=== PATIENT | male | born 1940 | race African-American/Black ===

== ENCOUNTER 2019-11-21 18:15 | IRF | payer MEDICARE, MEDICAID, SELFPAY ==
--- NOTE | ~2019-11-21 | CT_ITS ---
EXAMINATION: CT brain wo con DATE: 12/11/2019 00:28 INDICATION: Left hemiparesis. TECHNIQUE: Computed tomography (CT) of the head was performed without intravenous contrast. The mA wa s adjusted according to patient size. Iterative reconstruction technique was employed. The dose-lengt h product was 605.33 mGy-cm. COMPARISON: None FINDINGS: There are areas of low attenuation involving the white matter of the right temporal parieta l occipital region and left occipital lobe. There is no intracranial hemorrhage or abnormal mass lesi on. The ventricles are normal in size. There is mild mucosal thickening in the paranasal sinuses. The mastoid air cells are normal. There are likely changes of right ocular lens replacement surgery. IMPRESSION: 1. Areas of low attenuation involving the white matter of the right temporal parietal occipital lobe and left occipital lobe. The differential diagnosis includes posterior reversible encephalopathy synd emiliano (PRES), vasogenic edema from metastatic disease, and cytotoxic edema from infarcts. Brain MRI wi thout and with contrast is recommended. Reviewed, dictated and finalized at location A. IMPRESSION: 1. Areas of low attenuation involving the white matter of the right temporal pa rietal occipital lobe and left occipital lobe. The differential diagnosis inclu osiel posterior reversible encephalopathy syndrome (PRES), vasogenic edema from m etastatic disease, and cytotoxic edema from infarcts. Brain MRI without and wit h contrast is recommended.
--- NOTE | ~2019-11-21 | MR_ITS ---
EXAMINATION: MR brain/brain stem wo/w con DATE: 12/11/2019 12:49 INDICATION: Left hemiparesis. TECHNIQUE: Magnetic resonance imaging (MRI) of the brain and brainstem was performed without and with 14 mL MultiHance intravenous contrast. Sequences included sagittal and axial T1-weighted FSE, axial diffusion-weighted FS EPI, axial T2*-weighted GRE, axial T2-weighted FLAIR Propeller, and axial T2-we ighted Propeller. Postcontrast sequences included axial and coronal T1-weighted FSE. Apparent diffusi on coefficient (ADC) maps were created. COMPARISON: Head CT 12/11/2019 FINDINGS: There is a chronic infarct in the right parietal, temporal, and occipital lobes involving w mario matter and coffey matter. There is increased precontrast T1 weighted signal intensity in some of t he coffey matter in this distribution, consistent with cortical necrosis. There is an old infarct in le ft occipital lobe. There are scattered areas of nonspecific increased T2-weighted signal intensity in the cerebral white matter. There is no intracranial hemorrhage or abnormal mass lesion. The ventricl es are normal in size. There are likely changes of right ocular lens replacement surgery. There is mi ld mucosal thickening in the ethmoid sinuses. There is dependent fluid in the maxillary sinuses. The mastoid air cells are normal. IMPRESSION: 1. Chronic infarct involving the right parietal, temporal, and occipital lobes. Chronic infarct in th e left occipital lobe. 2. Mild nonspecific cerebral white matter disease, which likely represents chronic small vessel ische brii disease. Reviewed, dictated and finalized at location A. IMPRESSION: 1. Chronic infarct involving the right parietal, temporal, and occipital lobes. Chronic infarct in the left occipital lobe. 2. Mild nonspecific cerebral white matter disease, which likely represents level vial inspector jerome small vessel ischemic disease.
[2019-11-21 18:55] VITALS: BP 160/90; PULSE 90; RESP 20; TEMP 36.9; O2SAT 100
[2019-11-21 18:57] VITALS: BMI 25.5
--- NOTE | 2019-11-21 18:59 | PC.NURSE ---
This patient, Treva Solano, was admitted to [facility] Room 225-01. Patient/family oriented to hospital policies and general routines including ID bracelet, bed and alarms, visiting hours, pain management, procedures, bathroom and other care routines, personal items, smoking policy, room service/diet, and visiting hours. Valuables list has been completed. Information on how to activate the Rapid Response Team has been discussed. Patient/Family are encouraged to report perceived risks to care and to ask questions if they do not understand what they are told or what they should do.
[2019-11-21] MEDS: levETIRAcetam 500 MG TABLET 1000 MG PO (20:14)
[2019-11-21] MEDS: BETAMETHASONE/CLOTRIMAZOLE CR 15 GM TUBE 1 APPLIC TOPICAL (20:14)
[2019-11-21 22:00] VITALS: BP 146/78; PULSE 99; RESP 18; TEMP 37.1; O2SAT 98
[2019-11-22 04:51] LABS: Basophils Percent Auto 0.4 % (0.2-1.2); Eosinophils Absolute Auto 0.1 K/mm3 (0-0.3); Eosinophils Percent Auto 2.5 % (0-4.4); Hematocrit 38.4 % (42.0-52.0); Hemoglobin 12.8 g/dL (14.0-18.0); Immature Granulocyte Absolute 0.02 K/mm3 (0.00-0.031); Immature Granulocyte Percent A 0.4 % (0-0.5); Lymphocytes Absolute Auto 1.17 K/mm3 (0.9-3.2); Lymphocytes Percent Auto 20.5 % (18.3-44.2); Mean Corpuscular HGB Conc 33.3 g/dl (32-36); Mean Corpuscular Volume 89.9 fl (80-100); Mean Platelet Volume 10.3 fl (7.4-10.4); Monocytes Absolute Auto 0.7 K/mm3 (0.1-0.6); Monocytes Percent Auto 12.1 % (2.6-8.5); Neutrophils Absolute Auto 3.7 K/mm3 (1.3-6.7); Neutrophils Percent Auto 64.1 % (45.5-73.1); Platelet Count Result 162 k/mm3 (150-375); Red Blood Count 4.27 M/mm3 (4.6-6.20); Red Cell Distribution Width 14.2 % (11.5-14.5); White Blood Count 5.7 K/mm3 (4.5-10.0)
[2019-11-22 05:04] LABS: Blood Urea Nitrogen 13 mg/dL (9-20); Calcium 8.6 mg/dL (8.4-10.2); Carbon Dioxide 31 mmol/L (22-30); Chloride 102 mmol/L (98-107); Cholesterol 119 mg/dL (0-200); Estimated CRCL calculation 68 ml/min; Estimated Glomerular Filt Rate > 60; Glucose 89 mg/dL (75-110); HDL Direct 39 mg/dL; Potassium 3.3 mmol/L (3.4-5.0); Sodium 138 mmol/L (137-145); Triglycerides 37 mg/dL (<150)
[2019-11-22 05:15] LABS: LDL Cholesterol Direct 60 mg/dL
[2019-11-22 06:00] VITALS: BP 179/91; PULSE 67; RESP 18; TEMP 36.8; O2SAT 94
[2019-11-22] MEDS: AMLODIPINE BESYLATE 5 MG TABLET 10 MG PO (10:40)
[2019-11-22] MEDS: levETIRAcetam 500 MG TABLET 1000 MG PO ×2 (10:41→20:03)
[2019-11-22] MEDS: ATORVASTATIN 40 MG TABLET PO (10:41)
[2019-11-22] MEDS: FAMOTIDINE 20 MG TABLET PO (10:41)
[2019-11-22] MEDS: ASPIRIN 325 MG TABLET PO (10:41)
[2019-11-22] MEDS: LORATADINE 10 MG TABLET PO (10:41)
[2019-11-22 10:42] VITALS: PULSE 67
[2019-11-22] MEDS: METOPROLOL TARTRATE 25 MG TABLET PO (10:42)
[2019-11-22] MEDS: PANTOPRAZOLE 40 MG TABLET PO (10:42)
[2019-11-22] MEDS: BETAMETHASONE/CLOTRIMAZOLE CR 15 GM TUBE 1 APPLIC TOPICAL ×2 (10:42→20:03)
--- NOTE | 2019-11-22 13:13 | PCSTNOTE ---
Please refer to the Bedside Swallow Evaluation in the EMR.
--- NOTE | 2019-11-22 13:34 | WPDREHABHP ---
H&P: HPI History of Present Illness Chief complaint: CVA Narrative: Treva Solano is a 79 year old male HISTORY OF PRESENT ILLNESS: The patient's primary rehab impairment category is 0 1/stroke The etiologic diagnosis is right parieto-occipital CVA I saw this patient [id number] on November 22, 2019 at 10:00 a.m. The patient is a 79-year-old right-handed Afro [place] male with a past medical history of hypertension and hyperlipidemia who presented to [facility] on November 23, 2019 after his granddaughter found him leaning on a chair to get up. His daughter and granddaughter both tried to reach him via phone and he did not answer to the granddaughter who went to check on him and found him. The speech was noted to be slurred and he was weak on the left side. The head CT showed right parieto-occipital stroke likely subacute. The case was discussed with the stroke team in [facility] [employer] and they felt the patient should be transferred to [facility] as a stroke. He was not a candidate for any sort of thrombolytic intervention as he presented outside the window. Neurology was consulted and started him on aspirin and high intensity statin. MRI of the brain showed multiple right posterior cerebral artery territory infarct as well as acute sinusitis (he was placed on doxycycline close) EEG performed on November 16, 2019 noted a focal seizure that lasted approximately 30 seconds and did not generalize. The patient was placed on Keppra. Neurology wondered about the possibility of encephalitis and ordered lumbar puncture. Lumbar puncture was completed on November 17, 2019 and no infection was found. He passed his swallow study and is on melissa diet with thin liquid physical medicine and rehab was consulted and felt the patient would require comprehensive inpatient rehabilitation as the physical examination revealed left-sided weakness functional mobility deficits self-care deficits and dysphagia the patient is discharged to rehab on Lovenox for DVT prophylaxis at least this is what they told us at the time of screening however the patient did not come on the Lovenox at this point. The patient has not traveled outside the [place] or hide contact with someone who is ill that his travel outside of the [place] in the past 20 day days. The patient has not traveled to the area of the [place] that is experiencing no transmission of the Coronavirus and has not had close personal contact with anyone that has. The patient does not have a fever. The patient is not experiencing any lower respiratory illness symptoms. The patient was tested for COVID-19 and November 23, 2019 and the results were negative Therapy was initiated at the acute care facility and the patient transferred to us from [facility] on November 21, 2019 on FALLS OR SURGERIES: The patient has had no major surgeries in the 100 days prior to admission. They had falls in the past year. They had no falls with injury in the past year. PAST MEDICAL HISTORY: hypertension, hyperlipidemia PAST SURGICAL HISTORY: hemorrhoid surgery SOCIAL HISTORY: single. Lives alone. 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 Patient lives independently in a 1 level home with 3 steps to enter. He was independent driving prior with no assistive device. His daughter and grand daughter do the cooking cleaning and grocery shopping. 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 He has had 1 fall in the past 6 months just prior to admission and no major surgery. Never smoked only 2 alcoholic drinks per week no drugs FAMILY HISTORY: mother with heart disease and diabetes PRIOR LEVEL OF FUNCTION: Eating was INDEPENDENT Oral Care was INDEPENDENT Toileting Hygiene was INDEPENDENT Shower/Bathing was INDEPENDENT Upper Body Dressing was INDEPENDENT Lower Body Dressing was INDEPENDENT Donning/Lagrange Footwear was INDEPENDENT Rolling Left and R
[2019-11-22 14:00] VITALS: BP 167/88; PULSE 59; RESP 17; TEMP 36.8; O2SAT 100
[2019-11-22 14:04] VITALS: BMI 25.5
[2019-11-22 22:00] VITALS: BP 148/77; PULSE 73; RESP 16; TEMP 36.6; O2SAT 96
[2019-11-23] VITALS (7 sets, daily range): BP systolic 111–179; BP diastolic 68–94; PULSE 54–79; RESP 12–19; TEMP 36.6–36.7; O2SAT 97–100
[2019-11-23] MEDS: AMLODIPINE BESYLATE 5 MG TABLET 10 MG PO (09:09)
[2019-11-23] MEDS: ASPIRIN 325 MG TABLET PO (09:09)
[2019-11-23] MEDS: FAMOTIDINE 20 MG TABLET PO (09:09)
[2019-11-23] MEDS: ATORVASTATIN 40 MG TABLET PO (09:09)
[2019-11-23] MEDS: levETIRAcetam 500 MG TABLET 1000 MG PO ×2 (09:09→20:09)
[2019-11-23] MEDS: LORATADINE 10 MG TABLET PO (09:09)
[2019-11-23] MEDS: METOPROLOL TARTRATE 25 MG TABLET PO (09:09)
[2019-11-23] MEDS: BETAMETHASONE/CLOTRIMAZOLE CR 15 GM TUBE 1 APPLIC TOPICAL (09:09)
[2019-11-23] MEDS: PANTOPRAZOLE 40 MG TABLET PO (09:09)
[2019-11-23 11:23] LABS: Glucose Point of Care 127 (65-105)
--- NOTE | 2019-11-23 11:29 | ECG_ITS ---
Measurements Intervals Driscoll Rate: 52 P: 58 MS: 157 QRS: -17 QRSD: 88 T: 58 QT: 478 QTc: 446 Interpretive Statements SINUS BRADYCARDIA LEFT VENTRICULAR HYPERTROPHY AND ST-T CHANGE MINIMAL Q WAVES- HIGH LATERAL LEADS NONSPECIFIC ST ELEVATION IN ANTERIOR LEADS BORDERLINE ST-T WAVE ABNORMALITY- LATERAL LEADS BORDERLINE ECG Electronically Signed On 11-23-2019 13:01:50 CDT by Jhony Morales D.O.
--- NOTE | 2019-11-23 11:37 | PC.NURSE ---
Called to room by OT staff. Arrived to find patient sitting in wheelchair with seizure activity and jerking movements noted to left side of body. Patient to bed with max assist of 4. Rapid response team called. Dr Plascencia on floor and here to see patient. VSS at 110/58- 58- resp rate 12. 02 sat 94%. 02 applied at 2L/NC per orders. Patient initially unresponsive but waking up now when name called. New orders noted.
[2019-11-23] MEDS: levETIRAcetam 1000MG/NACL100ML 1,000 MG/100 ML BAG 400 MG IVPB (11:42)
--- NOTE | 2019-11-23 11:54 | PCOTNOTE ---
At beginning of morning OT session, patient was seated in wheelchair at the sink, preparing to perform oral care. Patient was oriented to self and place and was discussing the therapy plan for this session. Patient then stated he felt nauseous and leaned forward over the sink and was minimally responsive. Nursing was contacted and took the patient's vitals, which nursing stated checked normal. Patient was then transferred to bed and a rapid response was called. Physician was also notified and assessed patient. At this time, unable to complete therapy session.
[2019-11-23] MEDS: POTASSIUM CHLORIDE 20 MEQ PACKET (FOR LIQUID) PO (12:00)
--- NOTE | 2019-11-23 15:28 | PCOTNOTE ---
Attempted rescheduled OT session this afternoon, however patient unable to participate due to decreased patient tolerance.
--- NOTE | 2019-11-23 16:25 | RPD ---
INDIVIDUALIZED PLAN OF CARE FOR Treva Solano Brief Synthesis of Pre-Admission Screen, Post-Admission Evaluation and Therapy Evaluations: The patient presents to rehab with right parieto-occipital CVA. Comorbidities include hypertension, hyperlipidemia, hyperglycemia, elevated AST, hypercalcemia, malnutrition, debility, dysarthria, dysphagia, left-sided weakness, acute sinusitis, and focal seizures. The patient needs physician monitoring and treatment of new seizure disorder, electrolyte imbalances, monitoring for adverse reactions to new medications, and monitoring for infection. The patient requires nursing services for frequent neuro checks, anticoagulation therapy, medication management and education, pressure relief and skin care management, monitoring of labs, bowel and bladder training, and fall/seizure/safety precautions. Deficits include:ADLs, Balance, Endurance, Family Training/Education, Mobility, Pain Management, ROM, Safety, Speech, Strength, Swallowing, and Transfers Tricot Knitter/Case Management for: Discharge Planning and Patient/Family Counseling Physical Therapy: 5 days per week for 60 minutes. Treatments may include: Therapeutic Exercise, Gait Training, Neuromuscular Re-education, Transfer Training, Community Reintegration, Bed Mobility, Patient/Family Education, Wheelchair Mobility Group Therapy/Concurrent Therapy Rationales: -Improve attention span during functional activities in a distracted environment. -Enhance problem solving and/or adequate judgment skills during functional activities in a distracted environment. -Promote increased safety awareness in a distracted environment to reduce fall risk with functional tasks, transfers, and ambulation to allow a more safe, self-sufficient return to the home environment. -Improve dynamic balance skills to promote safety and independence with functional activities in a distracted environment for maximum gain. Occupational Therapy: 5 days per week for 60 minutes. Treatments may include: Therapeutic Exercise, Therapeutic Activity, Cognitive Training, Self-Care Transfer Training, Community Reintegration, Home Management, Patient/Family Education, Wheelchair Mobility Training, Energy Conservation Training Group Therapy/Concurrent Therapy Rationales: -Allow therapist to observe and teach generalization and carry-over of skills learned in individual therapy. -Enhance problem solving and sequencing skills during therapeutic activities in a distracted environment. -Promote increased safety awareness in a realistic setting to reduce fall risk with functional tasks due to visual and verbal distractions. -Increase functional level with ADLs, ADL transfers and use of adaptive equipment through therapeutic activities with others while promoting safety to allow a more safe, self-sufficient return home. Speech Therapy: 5 days per week for 60 minutes. Treatments may include: Dysphasia Therapy, Speech/Language/Communication Therapy, Cognitive Training, Patient/Family Education Group Therapy/Concurrent Therapy - Rationale: -Allow therapist to observe and teach generalization and carry-over of skills learned in individual therapy. -Improve comprehension skills with complex or abstract ideas through discussion in a realistic setting. -Enhance problem solving skills with complex issues during activities in a distracted environment. -Promote increased memory skills and concentration in a distracted environment for a safe transition home. -Improve attention and focus with language/communication skills in a realistic and supportive therapeutic setting. -Allow for practice of expression of basic needs and ideas through functional activities with others. Medical Prognosis: Good Anticipated Length of Stay: 15 days Rehab Goals: Eating Goal: 05-Setup or Clean Up Assistance Oral Hygiene Goal: 05-Setup or Clean Up Assistance Toileting Hygiene Goal: 04-Supervision or Touching Assistance Shower/Bathe Self Goal: 04-Super
[2019-11-24 06:00] VITALS: BP 166/84; PULSE 79; RESP 16; TEMP 36.7; O2SAT 100
[2019-11-24 08:05] VITALS: O2SAT 97
[2019-11-24] MEDS: ASPIRIN 325 MG TABLET PO (08:53)
[2019-11-24] MEDS: AMLODIPINE BESYLATE 5 MG TABLET 10 MG PO (08:53)
[2019-11-24] MEDS: ATORVASTATIN 40 MG TABLET PO (08:53)
[2019-11-24 08:54] VITALS: PULSE 79
[2019-11-24] MEDS: POTASSIUM CHLORIDE 20 MEQ PACKET (FOR LIQUID) PO (08:54)
[2019-11-24] MEDS: PANTOPRAZOLE 40 MG TABLET PO (08:54)
[2019-11-24] MEDS: levETIRAcetam 500 MG TABLET 1000 MG PO (08:54)
[2019-11-24] MEDS: FAMOTIDINE 20 MG TABLET PO (08:54)
[2019-11-24] MEDS: METOPROLOL TARTRATE 25 MG TABLET PO (08:54)
[2019-11-24] MEDS: LORATADINE 10 MG TABLET PO (08:54)
--- NOTE | 2019-11-24 12:34 | WPDNEURORHBP ---
Subjective Date/time seen: 11/24/19 12:34 Interval history: this 79-year-old Afro-Sammarinese gentleman is here after having had a right parieto-occipital stroke which has left him with left-sided hemiparesis left-sided ryan visual field defect and also significant left-sided hemiparesis he denies any headache nausea vomiting chest pain shortness of breath he had a brief partial seizure yesterday with loss of consciousness and was given an extra dose of Keppra 1 gram and since then he has not had any further seizures Review of Systems Review of Systems: All systems reviewed & are unremarkable except as noted in HPI and below Functional Status Ambulation Ability Ability to Ambulate 10 Feet: Maximum Assistance X 1 Ambulation Assistive Devices: Parallel Bars Transfers Ability Ability to Transfer In/Out of Chair: Maximum Assistance X 1 Exam Const: General: comfortable and no acute distress HENMT: General nose exam: Normal nares present Mouth: Yes moist mucous membranes Eyes: General: appearance normal, both eyes and all related structures Neck: Neck: supple and no JVD Resp: Effort & Inspection: normal respiratory effort Auscultation: clear to auscultation bilaterally Cardio: Rate: regular rate Rhythm: regular rhythm GI: GI Palp: Yes Soft to palpation Auscultation: normal bowel sounds Skin: General skin exam: normal color and no rashes or lesions noted Neuro: Other: patient is awake and alert well oriented of course he does not recall the sequence of events yesterday when he had the few minutes long partial seizures with eyes rolling back and the semi consciousness episode his left-sided hemiparesis stable left-sided neglect is stable and is communicating fairly well Extrem: General: normal to inspection Psych: Mental Status: mental status grossly normal Objective Data Vital Signs Vital Signs: Vital Signs - 24 hr 11/23/19 14:00 11/23/19 14:50 11/23/19 22:00 Temperature 36.7 C 36.6 C Pulse Rate 67 71 79 Respiratory Rate 19 16 Blood Pressure 134/81 134/81 145/77 H Pulse Oximetry 100 100 100 11/24/19 06:00 11/24/19 08:05 11/24/19 08:54 Temperature 36.7 C Pulse Rate 79 79 Respiratory Rate 16 Blood Pressure 166/84 H Pulse Oximetry 100 97 Intake/Output Intake/Output: Intake & Output 11/21/19 11/22/19 11/23/1929/20 23:59 23:59 23:59 23:59 Intake Total 960 940 360 Balance 960 940 360 Meds/Results Medications: Active Medications Generic Name Dose Route Start Last Admin Trade Name Freq PRN Reason Stop Dose Admin Amlodipine Besylate 10 mg 11/22/19 09:00 11/24/19 08:53 Norvasc PO 10 mg DAILY ILSA Administration Aspirin 325 mg 11/22/19 09:00 11/24/19 08:53 Aspirin PO 325 mg DAILY ILSA Administration Atorvastatin Calcium 40 mg 11/22/19 09:00 11/24/19 08:53 Lipitor PO 40 mg DAILY ILSA Administration Clotrimazole 1 applic 11/23/19 12:03 Lotrisone Cream TOPICAL Q12HR PRN Rash Famotidine 20 mg 11/22/19 09:00 11/24/19 08:54 Pepcid PO 20 mg DAILY ILSA Administration Levetiracetam 1,000 mg 11/21/19 21:00 11/24/19 08:54 Keppra Tablet PO 1,000 mg Q12HR ILSA Administration Loratadine 10 mg 11/22/19 09:00 11/24/19 08:54 Claritin PO 10 mg DAILY ILSA Administration Metoprolol Tartrate 25 mg 11/22/19 09:00 11/24/19 08:54 Lopressor PO 25 mg DAILY ILSA Administration Pantoprazole Sodium 40 mg 11/22/19 09:00 11/24/19 08:54 Protonix PO 40 mg QAM ILSA Administration Potassium Chloride 20 meq 11/23/19 09:00 11/24/19 08:54 Kcl Powder (For Liquid) PO 20 meq DAILY ILSA Administration Progress Note: A&P Assessment and Plan (1) Hyperlipidemia: Code(s): E78.5 - Hyperlipidemia, unspecified Status: Acute (2) Focal seizure: Code(s): R56.9 - Unspecified convulsions Status: Acute (3) Hypertension: Code(s): I10 - Essential (primary) hypertension
[2019-11-24 14:00] VITALS: BP 124/68; PULSE 65; RESP 17; TEMP 37.1; O2SAT 100
[2019-11-24] MEDS: levETIRAcetam 500 MG TABLET 1500 MG PO (20:16)
[2019-11-24 21:41] VITALS: BP 136/86; PULSE 75; RESP 20; TEMP 37.1; O2SAT 100
[2019-11-25 05:43] VITALS: BP 154/86; PULSE 69; RESP 18; TEMP 36.7; O2SAT 100
[2019-11-25] MEDS: ASPIRIN 325 MG TABLET PO (10:15)
[2019-11-25] MEDS: ATORVASTATIN 40 MG TABLET PO (10:15)
[2019-11-25] MEDS: AMLODIPINE BESYLATE 5 MG TABLET 10 MG PO (10:15)
[2019-11-25 10:16] VITALS: PULSE 74
[2019-11-25] MEDS: FAMOTIDINE 20 MG TABLET PO (10:16)
[2019-11-25] MEDS: METOPROLOL TARTRATE 25 MG TABLET PO (10:16)
[2019-11-25] MEDS: LORATADINE 10 MG TABLET PO (10:16)
[2019-11-25] MEDS: levETIRAcetam 500 MG TABLET 1500 MG PO ×2 (10:16→20:03)
[2019-11-25] MEDS: PANTOPRAZOLE 40 MG TABLET PO (10:17)
[2019-11-25] MEDS: POTASSIUM CHLORIDE 20 MEQ PACKET (FOR LIQUID) PO (10:17)
[2019-11-25 14:00] VITALS: BP 113/76; PULSE 61; RESP 17; TEMP 36.5; O2SAT 97
--- NOTE | 2019-11-25 15:51 | WPDNEURORHBP ---
Subjective Date/time seen: 11/25/19 15:51 Interval history: this very pleasant 79-year-old gentleman is here post stroke which has affected her left side of the body and also has had seizures for which Keppra has been increased so in the previous almost 48 hours he has not had any more seizures in denies any headache nausea vomiting chest pain shortness of breath fever chills sore throat Review of Systems Review of Systems: All systems reviewed & are unremarkable except as noted in HPI and below Functional Status Ambulation Ability Ability to Ambulate 10 Feet: Maximum Assistance X 1 Ambulation Assistive Devices: Hand Hold and Railings Transfers Ability Ability to Transfer In/Out of Chair: Moderate Assistance X 1 Exam Const: General: comfortable and no acute distress HENMT: General nose exam: Normal nares present Mouth: Yes moist mucous membranes Eyes: General: appearance normal, both eyes and all related structures Neck: Neck: supple and no JVD Resp: Effort & Inspection: normal respiratory effort Auscultation: clear to auscultation bilaterally Cardio: Rate: regular rate Rhythm: regular rhythm GI: GI Palp: Yes Soft to palpation Auscultation: normal bowel sounds Skin: General skin exam: normal color and no rashes or lesions noted Neuro: Other: patient is awake and alert will oriented in time place and person is speech and language functions are normal she is able to follow commands quite well left-sided hemiparesis is improved Extrem: General: normal to inspection Psych: Mental Status: mental status grossly normal Objective Data Vital Signs Vital Signs: Vital Signs - 24 hr 11/24/19 21:41 11/25/19 05:43 11/25/19 10:16 Temperature 37.1 C 36.7 C Pulse Rate 75 69 74 Respiratory Rate 20 18 Blood Pressure 136/86 154/86 H Pulse Oximetry 100 100 Intake/Output Intake/Output: Intake & Output 11/22/19 11/23/19 11/24/19 11/25/19 23:59 23:59 23:59 23:59 Intake Total 960 940 840 600 Balance 960 940 840 600 Meds/Results Medications: Active Medications Generic Name Dose Route Start Last Admin Trade Name Freq PRN Reason Stop Dose Admin Amlodipine Besylate 10 mg 11/22/19 09:00 11/25/19 10:15 Norvasc PO 10 mg DAILY ILSA Administration Aspirin 325 mg 11/22/19 09:00 11/25/19 10:15 Aspirin PO 325 mg DAILY ILSA Administration Atorvastatin Calcium 40 mg 11/22/19 09:00 11/25/19 10:15 Lipitor PO 40 mg DAILY ILSA Administration Clotrimazole 1 applic 11/23/19 12:03 Lotrisone Cream TOPICAL Q12HR PRN Rash Famotidine 20 mg 11/22/19 09:00 11/25/19 10:16 Pepcid PO 20 mg DAILY ILSA Administration Levetiracetam 1,500 mg 11/24/19 12:34 11/25/19 10:16 Keppra Tablet PO 1,500 mg Q12HR ILSA Administration Loratadine 10 mg 11/22/19 09:00 11/25/19 10:16 Claritin PO 10 mg DAILY ILSA Administration Metoprolol Tartrate 25 mg 11/22/19 09:00 11/25/19 10:16 Lopressor PO 25 mg DAILY ILSA Administration Pantoprazole Sodium 40 mg 11/22/19 09:00 11/25/19 10:17 Protonix PO 40 mg QAM ILSA Administration Potassium Chloride 20 meq 11/23/19 09:00 11/25/19 10:17 Kcl Powder (For Liquid) PO 20 meq DAILY ILSA Administration Progress Note: A&P Assessment and Plan (1) Hyperlipidemia: Code(s): E78.5 - Hyperlipidemia, unspecified Status: Acute (2) Focal seizure: Code(s): R56.9 - Unspecified convulsions Status: Acute (3) Hypertension: Code(s): I10 - Essential (primary) hypertension Status: Acute (4) Left hemiparesis: Code(s): G81.94 - Hemiplegia, unspecified affecting left nondominant side Status: Acute (5) Stroke: Code(s): I63.9 - Cerebral infarction, unspecified Status: Acute Additional Plan we will continue present medical management physical therapy of compression therapy and gait training
[2019-11-25] MEDS: ENOXAPARIN 30 MG/0.3 ML SYRINGE SUB-Q (18:06)
[2019-11-25 20:00] VITALS: BP 138/83; PULSE 69; RESP 16; TEMP 36.5; O2SAT 98
[2019-11-26 04:48] LABS: Alanine Aminotransferase 23 U/L (4-50); Albumin Level 3.7 g/dL (3.5-5.1); Alkaline Phosphatase 77 U/L (38-126); Aspartate Amino Transferase 35 U/L (17-59); Bilirubin,Total 0.5 mg/dL (0.2-1.3); Blood Urea Nitrogen 18 mg/dL (9-20); Calcium 9.1 mg/dL (8.4-10.2); Carbon Dioxide 30 mmol/L (22-30); Chloride 103 mmol/L (98-107); Estimated CRCL calculation 54 ml/min; Estimated Glomerular Filt Rate > 60; Glucose 93 mg/dL (75-110); Potassium 4.1 mmol/L (3.4-5.0); Sodium 138 mmol/L (137-145)
[2019-11-26 06:00] VITALS: BP 115/75; PULSE 92; RESP 20; TEMP 36.8; O2SAT 100
[2019-11-26] MEDS: ATORVASTATIN 40 MG TABLET PO (10:22)
[2019-11-26] MEDS: ASPIRIN 325 MG TABLET PO (10:22)
[2019-11-26] MEDS: AMLODIPINE BESYLATE 5 MG TABLET 10 MG PO (10:22)
[2019-11-26] MEDS: FAMOTIDINE 20 MG TABLET PO (10:23)
[2019-11-26] MEDS: levETIRAcetam 500 MG TABLET 1500 MG PO ×2 (10:23→20:17)
[2019-11-26] MEDS: ENOXAPARIN 30 MG/0.3 ML SYRINGE SUB-Q (10:23)
[2019-11-26 10:24] VITALS: PULSE 72
[2019-11-26] MEDS: POTASSIUM CHLORIDE 20 MEQ PACKET (FOR LIQUID) PO (10:24)
[2019-11-26] MEDS: METOPROLOL TARTRATE 25 MG TABLET PO (10:24)
[2019-11-26] MEDS: LORATADINE 10 MG TABLET PO (10:24)
[2019-11-26] MEDS: PANTOPRAZOLE 40 MG TABLET PO (10:24)
[2019-11-26 14:00] VITALS: BP 144/76; PULSE 69; RESP 20; TEMP 36.9; O2SAT 100
--- NOTE | 2019-11-26 18:27 | WPDNEURORHBP ---
Subjective Date/time seen: 11/26/19 18:27 Interval history: this pleasant 79-year-old gentleman is here after having had stroke with dense left-sided hemiparesis he also had seizures however has not had any seizure in past more than 2 days and tolerating the dose of Keppra denies any headache nausea vomiting chest pain shortness of breath fever chills or sore throat Review of Systems Review of Systems: All systems reviewed & are unremarkable except as noted in HPI and below Functional Status Ambulation Ability Ability to Ambulate 10 Feet: Moderate Assistance X 2 Ambulation Assistive Devices: Walker, Wheeled Transfers Ability Ability to Transfer In/Out of Chair: Moderate Assistance X 1 Exam Const: General: comfortable and no acute distress HENMT: General nose exam: Normal nares present Mouth: Yes moist mucous membranes Eyes: General: appearance normal, both eyes and all related structures Neck: Neck: supple and no JVD Resp: Effort & Inspection: normal respiratory effort Auscultation: clear to auscultation bilaterally Cardio: Rate: regular rate Rhythm: regular rhythm GI: GI Palp: Yes Soft to palpation Auscultation: normal bowel sounds Skin: General skin exam: normal color and no rashes or lesions noted Neuro: Other: patient is awake and alert well oriented follows all commands fairly well slowly improving left-sided weakness Extrem: General: normal to inspection Psych: Mental Status: mental status grossly normal Objective Data Vital Signs Vital Signs: Vital Signs - 24 hr 11/25/19 20:00 11/26/19 06:00 11/26/19 10:24 Temperature 36.5 C 36.8 C Pulse Rate 69 92 72 Respiratory Rate 16 20 Blood Pressure 138/83 115/75 Pulse Oximetry 98 100 11/26/19 14:00 Temperature 36.9 C Pulse Rate 69 Respiratory Rate 20 Blood Pressure 144/76 H Pulse Oximetry 100 Intake/Output Intake/Output: Intake & Output 11/23/19 11/24/19 11/25/19 11/26/19 23:59 23:59 23:59 23:59 Intake Total 928 632 5508 960 Balance 226 135 2393 960 Meds/Results Medications: Active Medications Generic Name Dose Route Start Last Admin Trade Name Freq PRN Reason Stop Dose Admin Amlodipine Besylate 10 mg 11/22/19 09:00 11/26/19 10:22 Norvasc PO 10 mg DAILY ILSA Administration Aspirin 325 mg 11/22/19 09:00 11/26/19 10:22 Aspirin PO 325 mg DAILY ILSA Administration Atorvastatin Calcium 40 mg 11/22/19 09:00 11/26/19 10:22 Lipitor PO 40 mg DAILY ILSA Administration Clotrimazole 1 applic 11/23/19 12:03 Lotrisone Cream TOPICAL Q12HR PRN Rash Enoxaparin Sodium 30 mg 11/26/19 09:00 11/26/19 10:23 Lovenox SUB-Q 30 mg DAILY ILSA Administration Famotidine 20 mg 11/22/19 09:00 11/26/19 10:23 Pepcid PO 20 mg DAILY ILSA Administration Levetiracetam 1,500 mg 11/24/19 12:34 11/26/19 10:23 Keppra Tablet PO 1,500 mg Q12HR ILSA Administration Loratadine 10 mg 11/22/19 09:00 11/26/19 10:24 Claritin PO 10 mg DAILY ILSA Administration Metoprolol Tartrate 25 mg 11/22/19 09:00 11/26/19 10:24 Lopressor PO 25 mg DAILY ILSA Administration Pantoprazole Sodium 40 mg 11/22/19 09:00 11/26/19 10:24 Protonix PO 40 mg QAM ILSA Administration Potassium Chloride 20 meq 11/23/19 09:00 11/26/19 10:24 Kcl Powder (For Liquid) PO 20 meq DAILY ILSA Administration Labs Labs: Laboratory Results - last 24 hr 11/26/19 04:13 Sodium 138 Potassium 4.1 Chloride 103 Carbon Dioxide 30 BUN 18 Creatinine 0.90 Estim Creat Clear Calc 54 Estimated GFR > 60 Glucose 93 Calcium 9.1 Total Bilirubin 0.5 AST 35 ALT 23 Alkaline Phosphatase 77 Total Protein 7.0 Albumin 3.7 Progress Note: A&P Assessment and Plan (1) Hyperlipidemia: Code(s): E78.5 - Hyperlipidemia, unspecified Status: Acute (2) Focal seizure: Code(s): R56.9 - Unspecified convulsions Status: Acute (3) Hypertension:
[2019-11-26 19:23] VITALS: O2SAT 96
[2019-11-26 21:56] VITALS: BP 165/80; PULSE 63; RESP 20; TEMP 36.6; O2SAT 100
[2019-11-27 06:00] VITALS: BP 130/76; PULSE 77; RESP 16; TEMP 37; O2SAT 100
[2019-11-27] MEDS: FAMOTIDINE 20 MG TABLET PO (08:24)
[2019-11-27] MEDS: ATORVASTATIN 40 MG TABLET PO (08:24)
[2019-11-27] MEDS: ENOXAPARIN 30 MG/0.3 ML SYRINGE SUB-Q (08:24)
[2019-11-27] MEDS: ASPIRIN 325 MG TABLET PO (08:24)
[2019-11-27] MEDS: AMLODIPINE BESYLATE 5 MG TABLET 10 MG PO (08:24)
[2019-11-27 08:25] VITALS: PULSE 77
[2019-11-27] MEDS: LORATADINE 10 MG TABLET PO (08:25)
[2019-11-27] MEDS: POTASSIUM CHLORIDE 20 MEQ PACKET (FOR LIQUID) PO (08:25)
[2019-11-27] MEDS: PANTOPRAZOLE 40 MG TABLET PO (08:25)
[2019-11-27] MEDS: levETIRAcetam 500 MG TABLET 1500 MG PO ×2 (08:25→20:12)
[2019-11-27] MEDS: METOPROLOL TARTRATE 25 MG TABLET PO (08:25)
--- NOTE | 2019-11-27 10:38 | WPDNEURORHBP ---
Subjective Date/time seen: stroke with left hemiparesis ,and sizures on keppra,hypertension,[id number]/01/20 10:38 Review of Systems Review of Systems: All systems reviewed & are unremarkable except as noted in HPI and below Functional Status Ambulation Ability Ability to Ambulate 10 Feet: Moderate Assistance X 2 Ambulation Assistive Devices: Walker, Wheeled Transfers Ability Ability to Transfer In/Out of Chair: Moderate Assistance X 1 Exam Const: General: cooperative, comfortable and no acute distress Orientation/consciousness: patient oriented x3 Eyes: General: appearance normal, both eyes and all related structures Neck: Neck: full ROM Resp: Effort & Inspection: normal respiratory effort Auscultation: clear to auscultation bilaterally Cardio: Rate: regular rate Rhythm: regular rhythm GI: Auscultation: normal bowel sounds Skin: General skin exam: no rashes or lesions noted Neuro: General: patient oriented x3 Motor exam (neuro): Abnormal motor strength present (left hemiparesis) Psych: Appearance: grossly normal Objective Data Vital Signs Vital Signs: Vital Signs - 24 hr 11/26/19 14:00 11/26/19 19:23 11/26/19 21:56 Temperature 36.9 C 36.6 C Pulse Rate 69 63 Respiratory Rate 20 20 Blood Pressure 144/76 H 165/80 H Pulse Oximetry 100 96 100 11/27/19 06:00 11/27/19 08:25 Temperature 37.0 C Pulse Rate 77 77 Respiratory Rate 16 Blood Pressure 130/76 Pulse Oximetry 100 Intake/Output Intake/Output: Intake & Output 11/24/19 11/25/19 11/26/19 11/27/19 23:59 23:59 23:59 23:59 Intake Total 840 1080 960 320 Balance 840 1080 960 320 Meds/Results Medications: Active Medications Generic Name Dose Route Start Last Admin Trade Name Freq PRN Reason Stop Dose Admin Amlodipine Besylate 10 mg 11/22/19 09:00 11/27/19 08:24 Norvasc PO 10 mg DAILY ILSA Administration Aspirin 325 mg 11/22/19 09:00 11/27/19 08:24 Aspirin PO 325 mg DAILY ILSA Administration Atorvastatin Calcium 40 mg 11/22/19 09:00 11/27/19 08:24 Lipitor PO 40 mg DAILY ILSA Administration Clotrimazole 1 applic 05/28/20 12:03 Lotrisone Cream TOPICAL Q12HR PRN Rash Enoxaparin Sodium 30 mg 11/26/19 09:00 11/27/19 08:24 Lovenox SUB-Q 30 mg DAILY ILSA Administration Famotidine 20 mg 11/22/19 09:00 11/27/19 08:24 Pepcid PO 20 mg DAILY ILSA Administration Levetiracetam 1,500 mg 11/24/19 12:34 11/27/19 08:25 Keppra Tablet PO 1,500 mg Q12HR ILSA Administration Loratadine 10 mg 11/22/19 09:00 11/27/19 08:25 Claritin PO 10 mg DAILY ILSA Administration Metoprolol Tartrate 25 mg 11/22/19 09:00 11/27/19 08:25 Lopressor PO 25 mg DAILY ILSA Administration Pantoprazole Sodium 40 mg 11/22/19 09:00 11/27/19 08:25 Protonix PO 40 mg QAM ILSA Administration Potassium Chloride 20 meq 11/23/19 09:00 11/27/19 08:25 Kcl Powder (For Liquid) PO 20 meq DAILY ILSA Administration Progress Note: A&P Assessment and Plan (1) Hyperlipidemia: Code(s): E78.5 - Hyperlipidemia, unspecified Status: Acute (2) Focal seizure: Code(s): R56.9 - Unspecified convulsions Status: Acute (3) Hypertension: Code(s): I10 - Essential (primary) hypertension Status: Acute (4) Left hemiparesis: Code(s): G81.94 - Hemiplegia, unspecified affecting left nondominant side Status: Acute (5) Stroke: Code(s): I63.9 - Cerebral infarction, unspecified Status: Acute Additional Plan continue with therapy
--- NOTE | 2019-11-27 12:36 | PCNFU ---
Nutrition Follow-Up Complete: Decreased sodium/fat needs related to cardiovascular disease as evidenced by hx CVA. Goal: Patient to consume 75% of meals or greater. Progressing towards goal. We will continue current goal. Pt current nutrition is Minced and Moist Level 5/Heart Healthy. Nutrition recommendation:Agree Last recorded weight is 74 kg. Bowel Motility: Active bowel sounds and flatus present. Labs Reviewed: No new labs to report. Meds Noted:Keppra,Lopressor,Lipitor,Aspirin, Protonix Additional Notes: Patient eating at nursing station today. Eating well-at least 75% of meals. Likes all liquids,but not a fan of water. Diet has upgraded from Pureed to Minced and Moist Level 5 over the weekend. Monitoring: Follow up in 5 days.
[2019-11-27 14:00] VITALS: BP 124/73; PULSE 71; RESP 20; TEMP 36.7; O2SAT 100
[2019-11-27 21:44] VITALS: BP 145/91; PULSE 74; RESP 20; TEMP 36.9; O2SAT 100
[2019-11-28 06:00] VITALS: BP 110/61; PULSE 85; RESP 20; TEMP 37; O2SAT 99
[2019-11-28] MEDS: ENOXAPARIN 40 MG/0.4 ML SYRINGE SUB-Q (08:41)
[2019-11-28] MEDS: ASPIRIN 325 MG TABLET PO (08:41)
[2019-11-28] MEDS: ATORVASTATIN 40 MG TABLET PO (08:41)
[2019-11-28] MEDS: AMLODIPINE BESYLATE 5 MG TABLET 10 MG PO (08:41)
[2019-11-28 08:42] VITALS: PULSE 70
[2019-11-28] MEDS: FAMOTIDINE 20 MG TABLET PO (08:42)
[2019-11-28] MEDS: LORATADINE 10 MG TABLET PO (08:42)
[2019-11-28] MEDS: METOPROLOL TARTRATE 25 MG TABLET PO (08:42)
[2019-11-28] MEDS: levETIRAcetam 500 MG TABLET 1500 MG PO ×2 (08:42→20:28)
[2019-11-28] MEDS: POTASSIUM CHLORIDE 20 MEQ PACKET (FOR LIQUID) PO (08:43)
[2019-11-28] MEDS: PANTOPRAZOLE 40 MG TABLET PO (08:43)
[2019-11-28 14:00] VITALS: BP 109/62; PULSE 66; RESP 20; TEMP 36.8; O2SAT 100
--- NOTE | 2019-11-28 14:04 | WPDNEURORHBP ---
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 after having had a right hemispheric stroke which has left him with the left-sided visual field defect and left-sided hemiparesis he is improving quite a bit as for as the walking is concerned he walked 135 feet however his deficit on the left side left visual field defect is the 1 which is bothersome and needs to be addressed on a frequent basis he denies any headache nausea vomiting chest pain or shortness of breath he did not have any for the seizure in the previous 3 days Review of Systems Review of Systems: All systems reviewed & are unremarkable except as noted in HPI and below Functional Status Ambulation Ability Ability to Ambulate 10 Feet: Minimum Assistance X 1 Ability to Ambulate 50 Feet With 2 Turns: Minimum Assistance X 1 Ability to Ambulate 150 Feet: Minimum Assistance X 1 Ambulation Assistive Devices: Hand Hold Transfers Ability Ability to Transfer In/Out of Chair: Minimum Assistance X 1 Exam Const: General: comfortable and no acute distress HENMT: General nose exam: Normal nares present Mouth: Yes moist mucous membranes Eyes: General: appearance normal, both eyes and all related structures Neck: Neck: supple and no JVD Resp: Effort & Inspection: normal respiratory effort Auscultation: clear to auscultation bilaterally Cardio: Rate: regular rate Rhythm: regular rhythm GI: GI Palp: Yes Soft to palpation Auscultation: normal bowel sounds Skin: General skin exam: normal color and no rashes or lesions noted Neuro: Other: patient is awake and alert well oriented not any distress us questions appropriately the left-sided visual field defect and neglect remains the same left-sided hemiparesis is improving Extrem: General: normal to inspection Psych: Mental Status: mental status grossly normal Objective Data Vital Signs Vital Signs: Vital Signs - 24 hr 11/27/19 21:44 11/28/19 06:00 11/28/19 08:42 Temperature 36.9 C 37.0 C Pulse Rate 74 85 70 Respiratory Rate 20 20 Blood Pressure 145/91 H 110/61 Pulse Oximetry 100 99 Intake/Output Intake/Output: Intake & Output 11/25/19 11/26/19 11/27/19 11/28/19 23:59 23:59 23:59 23:59 Intake Total 1080 100 312 386 Balance 1080 960 760 480 Meds/Results Medications: Active Medications Generic Name Dose Route Start Last Admin Trade Name Silva PRN Reason Stop Dose Admin Amlodipine Besylate 10 mg 11/22/19 09:00 11/28/19 08:41 Norvasc PO 10 mg DAILY ILSA Administration Aspirin 325 mg 11/22/19 09:00 11/28/19 08:41 Aspirin PO 325 mg DAILY ILSA Administration Atorvastatin Calcium 40 mg 11/22/19 09:00 11/28/19 08:41 Lipitor PO 40 mg DAILY ILSA Administration Clotrimazole 1 applic 11/23/19 12:03 Lotrisone Cream TOPICAL Q12HR PRN Rash Enoxaparin Sodium 40 mg 11/28/19 09:00 11/28/19 08:41 Lovenox SUB-Q 40 mg DAILY ILSA Administration Famotidine 20 mg 11/22/19 09:00 11/28/19 08:42 Pepcid PO 20 mg DAILY ILSA Administration Levetiracetam 1,500 mg 11/24/19 12:34 11/28/19 08:42 Keppra Tablet PO 1,500 mg Q12HR ILSA Administration Loratadine 10 mg 11/22/19 09:00 11/28/19 08:42 Claritin PO 10 mg DAILY ILSA Administration Metoprolol Tartrate 25 mg 11/22/19 09:00 11/28/19 08:42 Lopressor PO 25 mg DAILY ILSA Administration Pantoprazole Sodium 40 mg 11/22/19 09:00 11/28/19 08:43 Protonix PO 40 mg QAM ILSA Administration Potassium Chloride 20 meq 11/23/19 09:00 11/28/19 08:43 Kcl Powder (For Liquid) PO 20 meq DAILY ILSA Administration Progress Note: A&P Assessment and Plan (1) Hyperlipidemia: Code(s): E78.5 - Hyperlipidemia, unspecified Status: Acute (2) Focal seizure: Code(s): R56.9 - Unspecified convulsions Status: Acute (3) Hypertension: Code(s): I10 - Essential (primary)
--- NOTE | 2019-11-28 20:16 | PC.NURSE ---
Malou HOUSTON called for help in 225 at about 1830 and I went in to find patient in angry aggressive state and moving about with the potential to fall. He said he did not want changed so I said okay you don't have to be changed. Was able to assist to calm him down and he finally did sit down. I called security and RN [employer]aving [employer] came Bridget and patient did finally settle down. I also called his daughter Pebbles and she could not come to get him as he asked. Bridget Sotomayor called and was given briefing on situation. Dr. Frost notified and ordered seroquel 12.5mg now dose. I did call Pebbles back to let her know her Dad was okay. I asked Bridget for a sitter and they did accomodate which has helped alot.
[2019-11-28] MEDS: QUEtiapine FUMARATE 12.5 MG TABLET PO (20:28)
[2019-11-28 22:00] VITALS: BP 130/52; PULSE 86; RESP 20; TEMP 36.9; O2SAT 100
[2019-11-29 04:37] LABS: Basophils Percent Auto 0.4 % (0.2-1.2); Eosinophils Absolute Auto 0.1 K/mm3 (0-0.3); Hematocrit 39.7 % (42.0-52.0); Immature Granulocyte Absolute 0.02 K/mm3 (0.00-0.031); Immature Granulocyte Percent A 0.4 % (0-0.5); Lymphocytes Absolute Auto 1.49 K/mm3 (0.9-3.2); Lymphocytes Percent Auto 26.9 % (18.3-44.2); Mean Corpuscular HGB Conc 32.7 g/dl (32-36); Mean Corpuscular Hemoglobin 29.5 pg (26-34); Mean Platelet Volume 10.1 fl (7.4-10.4); Monocytes Absolute Auto 0.5 K/mm3 (0.1-0.6); Monocytes Percent Auto 9.6 % (2.6-8.5); Neutrophils Absolute Auto 3.4 K/mm3 (1.3-6.7); Neutrophils Percent Auto 60.7 % (45.5-73.1); Platelet Count Result 228 k/mm3 (150-375); Red Blood Count 4.41 M/mm3 (4.6-6.20); Red Cell Distribution Width 14.4 % (11.5-14.5); White Blood Count 5.5 K/mm3 (4.5-10.0)
[2019-11-29 04:50] LABS: Blood Urea Nitrogen 16 mg/dL (9-20); Calcium 8.9 mg/dL (8.4-10.2); Carbon Dioxide 28 mmol/L (22-30); Chloride 105 mmol/L (98-107); Estimated CRCL calculation 54 ml/min; Estimated Glomerular Filt Rate > 60; Glucose 89 mg/dL (75-110); Sodium 137 mmol/L (137-145)
[2019-11-29 06:00] VITALS: BP 138/81; PULSE 87; RESP 18; TEMP 37.7; O2SAT 93
--- NOTE | 2019-11-29 07:31 | PC.NURSE ---
Dr Frost notified of continued confusion this morning with inappropriate remarks - no aggressive behavior noted at this time. I also advised of temp of 99.8. New orders received.
[2019-11-29 08:16] LABS: Add Urine Microscopic? NO; Appearance Urine Clear (Clear); Bilirubin Urine Negative (Negative); Blood Urine Negative (Negative); Color Urine Yellow (Yellow); Glucose Urine UA Negative (Negative); Ketones Urine Negative (Negative); Leukocyte Esterase Ur Negative LEU/UL (Negative); Nitrate Urine Negative (Negative); Protein Urine Negative (Negative); Specific Grav Ur 1.014 (1.001-1.035); Urobilinogen Urine Negative mg/dL (<2.0)
[2019-11-29] MEDS: AMLODIPINE BESYLATE 5 MG TABLET 10 MG PO (10:32)
[2019-11-29] MEDS: ASPIRIN 325 MG TABLET PO (10:32)
[2019-11-29] MEDS: ATORVASTATIN 40 MG TABLET PO (10:32)
[2019-11-29] MEDS: levETIRAcetam 500 MG TABLET 1500 MG PO ×2 (10:33→20:11)
[2019-11-29] MEDS: FAMOTIDINE 20 MG TABLET PO (10:33)
[2019-11-29] MEDS: ENOXAPARIN 40 MG/0.4 ML SYRINGE SUB-Q (10:33)
[2019-11-29] MEDS: PANTOPRAZOLE 40 MG TABLET PO (10:34)
[2019-11-29] MEDS: LORATADINE 10 MG TABLET PO (10:34)
[2019-11-29] MEDS: QUEtiapine FUMARATE 12.5 MG TABLET PO (10:34)
[2019-11-29] MEDS: POTASSIUM CHLORIDE 20 MEQ PACKET (FOR LIQUID) PO (10:34)
--- NOTE | 2019-11-29 10:34 | WPDNEURORHBP ---
Subjective Date/time seen: 11/29/19 10:34 Interval history: this 79-year-old gentleman who has had right hemispheric stroke with left-sided hemiparesis left-sided neglect and left-sided visual field defect and also several days ago had seizures but the seizures have been well-controlled last night I was called because the patient had a psychotic episode where he was belligerent combative and aggressive however calmed down with the use of low-dose Seroquel, earlier this morning he was kind of little off keeel however as the day goes by a he is back to his baseline able to recognize everything does not recall what exactly happened except some foggy memory that he said I got little crazy he denies any headache nausea vomiting chest pain shortness of breath Review of Systems Review of Systems: All systems reviewed & are unremarkable except as noted in HPI and below Functional Status Ambulation Ability Ability to Ambulate 10 Feet: Minimum Assistance X 1 Ability to Ambulate 50 Feet With 2 Turns: Minimum Assistance X 1 Ability to Ambulate 150 Feet: Minimum Assistance X 1 Ambulation Assistive Devices: Hand Hold Transfers Ability Ability to Transfer In/Out of Chair: Minimum Assistance X 1 Exam Const: General: comfortable and no acute distress HENMT: General nose exam: Normal nares present Mouth: Yes moist mucous membranes Eyes: General: appearance normal, both eyes and all related structures Neck: Neck: supple and no JVD Resp: Effort & Inspection: normal respiratory effort Auscultation: clear to auscultation bilaterally Cardio: Rate: regular rate Rhythm: regular rhythm GI: GI Palp: Yes Soft to palpation Auscultation: normal bowel sounds Skin: General skin exam: normal color and no rashes or lesions noted Neuro: Other: patient is awake and alert well oriented in time place and person with fluent speech and foggy memory of the events happened last night when he had a psychotic aggressive episode overall his picture is improving and he has not had any further seizures Extrem: General: normal to inspection Psych: Mental Status: mental status grossly normal Objective Data Vital Signs Vital Signs: Vital Signs - 24 hr 11/28/19 14:00 11/28/19 22:00 11/29/19 06:00 Temperature 36.8 C 36.9 C 37.7 C H Pulse Rate 66 86 87 Respiratory Rate 20 20 18 Blood Pressure 109/62 130/52 L 138/81 Pulse Oximetry 100 100 93 Intake/Output Intake/Output: Intake & Output 11/26/19 11/27/19 11/28/19 11/29/19 23:59 23:59 23:59 23:59 Intake Total 960 760 720 240 Balance 960 760 720 240 Meds/Results Medications: Active Medications Generic Name Dose Route Start Last Admin Trade Name Freq PRN Reason Stop Dose Admin Amlodipine Besylate 10 mg 11/22/19 09:00 11/28/19 08:41 Norvasc PO 10 mg DAILY ILSA Administration Aspirin 325 mg 11/22/19 09:00 11/28/19 08:41 Aspirin PO 325 mg DAILY ILSA Administration Atorvastatin Calcium 40 mg 11/22/19 09:00 11/28/19 08:41 Lipitor PO 40 mg DAILY ILSA Administration Clotrimazole 1 applic 11/23/19 12:03 Lotrisone Cream TOPICAL Q12HR PRN Rash Enoxaparin Sodium 40 mg 11/28/19 09:00 11/28/19 08:41 Lovenox SUB-Q 40 mg DAILY ILSA Administration Famotidine 20 mg 11/22/19 09:00 11/28/19 08:42 Pepcid PO 20 mg DAILY ILSA Administration Levetiracetam 1,500 mg 11/24/19 12:34 11/28/19 20:28 Keppra Tablet PO 1,500 mg Q12HR ILSA Administration Loratadine 10 mg 11/22/19 09:00 11/28/19 08:42 Claritin PO 10 mg DAILY ILSA Administration Metoprolol Tartrate 25 mg 11/22/19 09:00 11/28/19 08:42 Lopressor PO 25 mg DAILY ILSA Administration Pantoprazole Sodium 40 mg 11/22/19 09:00 11/28/19 08:43 Protonix PO 40 mg QAM ILSA Administration Potassium Chloride 20 meq 11/23/19 09:00 11/28/19 08:43 Kcl Powder (For Liquid) PO 20 meq DAILY ILSA Administration Quetiapine Fumarate 12.5 mg 11/28/19
[2019-11-29 10:35] VITALS: PULSE 87
[2019-11-29] MEDS: METOPROLOL TARTRATE 25 MG TABLET PO (10:35)
[2019-11-29 14:00] VITALS: BP 116/70; PULSE 68; RESP 20; TEMP 37; O2SAT 98
[2019-11-29 22:00] VITALS: BP 124/70; PULSE 76; RESP 20; TEMP 37.2; O2SAT 100
[2019-11-30 06:00] VITALS: BP 124/76; PULSE 86; RESP 17; TEMP 36.6; O2SAT 100
[2019-11-30] MEDS: AMLODIPINE BESYLATE 5 MG TABLET 10 MG PO (09:11)
[2019-11-30] MEDS: ATORVASTATIN 40 MG TABLET PO (09:12)
[2019-11-30] MEDS: LORATADINE 10 MG TABLET PO (09:12)
[2019-11-30] MEDS: FAMOTIDINE 20 MG TABLET PO (09:12)
[2019-11-30] MEDS: ENOXAPARIN 40 MG/0.4 ML SYRINGE SUB-Q (09:12)
[2019-11-30] MEDS: ASPIRIN 325 MG TABLET PO (09:12)
[2019-11-30] MEDS: levETIRAcetam 500 MG TABLET 1500 MG PO ×2 (09:12→20:06)
[2019-11-30 09:13] VITALS: PULSE 86
[2019-11-30] MEDS: POTASSIUM CHLORIDE 20 MEQ PACKET (FOR LIQUID) PO (09:13)
[2019-11-30] MEDS: PANTOPRAZOLE 40 MG TABLET PO (09:13)
[2019-11-30] MEDS: QUEtiapine FUMARATE 12.5 MG TABLET PO (09:13)
[2019-11-30] MEDS: METOPROLOL TARTRATE 25 MG TABLET PO (09:13)
[2019-11-30 14:00] VITALS: BP 128/78; PULSE 74; RESP 18; TEMP 37.1; O2SAT 99
--- NOTE | 2019-11-30 14:12 | WPDNEURORHBP ---
Subjective Date/time seen: 11/30/19 14:12 Interval history: this 79-year-old gentleman is here after having had right hemispheric stroke and seizures however has not had any seizures for while he did not have any more psychotic episode he denies any headache nausea vomiting chest pain shortness of breath fever chills sore throat and urologically improving quite a bit Review of Systems Review of Systems: All systems reviewed & are unremarkable except as noted in HPI and below Functional Status Ambulation Ability Ability to Ambulate 10 Feet: Contact Guard Ability to Ambulate 50 Feet With 2 Turns: Contact Guard Ability to Ambulate 150 Feet: Contact Guard Ambulation Assistive Devices: Hand Hold Transfers Ability Ability to Transfer In/Out of Chair: Minimum Assistance X 1 Exam Const: General: no acute distress and uncomfortable HENMT: General nose exam: Normal nares present Mouth: Yes moist mucous membranes Eyes: General: appearance normal, both eyes and all related structures Neck: Neck: supple and no JVD Resp: Effort & Inspection: normal respiratory effort Auscultation: clear to auscultation bilaterally Cardio: Rate: regular rate Rhythm: regular rhythm GI: GI Palp: Yes Soft to palpation Auscultation: normal bowel sounds Skin: General skin exam: normal color and no rashes or lesions noted Neuro: Other: patient is awake and alert well oriented time place and person has normal is speech and language function left-sided neglect and the visual field deficit is improving left-sided hemiparesis improving his quite much walking Extrem: General: normal to inspection Psych: Mental Status: mental status grossly normal Objective Data Vital Signs Vital Signs: Vital Signs - 24 hr 11/30/19 22:00 12/01/19 06:00 12/01/19 09:45 Temperature 37.6 C H 37.1 C Pulse Rate 77 82 82 Respiratory Rate 18 18 Blood Pressure 135/84 141/89 H Pulse Oximetry 99 100 Intake/Output Intake/Output: Intake & Output 11/28/19 11/29/19 11/30/19 12/01/19 23:59 23:59 23:59 23:59 Intake Total 720 720 720 360 Balance 720 720 720 360 Meds/Results Medications: Active Medications Generic Name Dose Route Start Last Admin Trade Name Freq PRN Reason Stop Dose Admin Amlodipine Besylate 10 mg 11/22/19 09:00 12/01/19 09:45 Norvasc PO 10 mg DAILY ILSA Administration Aspirin 325 mg 11/22/19 09:00 12/01/19 09:44 Aspirin PO 325 mg DAILY ILSA Administration Atorvastatin Calcium 40 mg 11/22/19 09:00 12/01/19 09:44 Lipitor PO 40 mg DAILY ILSA Administration Clotrimazole 1 applic 11/23/19 12:03 Lotrisone Cream TOPICAL Q12HR PRN Rash Enoxaparin Sodium 40 mg 11/28/19 09:00 12/01/19 09:45 Lovenox SUB-Q 40 mg DAILY ILSA Administration Famotidine 20 mg 11/22/19 09:00 12/01/19 09:45 Pepcid PO 20 mg DAILY ILSA Administration Levetiracetam 1,500 mg 11/24/19 12:34 12/01/19 09:44 Keppra Tablet PO 1,500 mg Q12HR ILSA Administration Loratadine 10 mg 11/22/19 09:00 12/01/19 09:44 Claritin PO 10 mg DAILY ILSA Administration Metoprolol Tartrate 25 mg 11/22/19 09:00 12/01/19 09:45 Lopressor PO 25 mg DAILY ILSA Administration Pantoprazole Sodium 40 mg 11/22/19 09:00 12/01/19 09:44 Protonix PO 40 mg QAM ILSA Administration Potassium Chloride 20 meq 11/23/19 09:00 12/01/19 09:44 Kcl Powder (For Liquid) PO 20 meq DAILY ILSA Administration Quetiapine Fumarate 12.5 mg 11/28/19 19:25 12/01/19 09:46 Seroquel PO 12.5 mg QAM ILSA Administration Progress Note: A&P Assessment and Plan (1) Hyperlipidemia: Code(s): E78.5 - Hyperlipidemia, unspecified Status: Acute (2) Focal seizure: Code(s): R56.9 - Unspecified convulsions Status: Acute (3) Hypertension: Code(s): I10 - Essential (primary) hypertension Status: Acute (4) Left hemiparesis: Code(s): G81.94 - Hemiplegia, un
[2019-11-30 22:00] VITALS: BP 135/84; PULSE 77; RESP 18; TEMP 37.6; O2SAT 99
[2019-12-01 06:00] VITALS: BP 141/89; PULSE 82; RESP 18; TEMP 37.1; O2SAT 100
[2019-12-01] MEDS: LORATADINE 10 MG TABLET PO (09:44)
[2019-12-01] MEDS: ASPIRIN 325 MG TABLET PO (09:44)
[2019-12-01] MEDS: levETIRAcetam 500 MG TABLET 1500 MG PO ×2 (09:44→21:10)
[2019-12-01] MEDS: PANTOPRAZOLE 40 MG TABLET PO (09:44)
[2019-12-01] MEDS: ATORVASTATIN 40 MG TABLET PO (09:44)
[2019-12-01] MEDS: POTASSIUM CHLORIDE 20 MEQ PACKET (FOR LIQUID) PO (09:44)
[2019-12-01 09:45] VITALS: PULSE 82
[2019-12-01] MEDS: FAMOTIDINE 20 MG TABLET PO (09:45)
[2019-12-01] MEDS: METOPROLOL TARTRATE 25 MG TABLET PO (09:45)
[2019-12-01] MEDS: ENOXAPARIN 40 MG/0.4 ML SYRINGE SUB-Q (09:45)
[2019-12-01] MEDS: AMLODIPINE BESYLATE 5 MG TABLET 10 MG PO (09:45)
[2019-12-01] MEDS: QUEtiapine FUMARATE 12.5 MG TABLET PO (09:46)
--- NOTE | 2019-12-01 12:54 | PCDIET ---
Nutrition Follow-Up Complete: Nutrition Diagnosis: Decreased sodium/fat needs related to cardiovascular disease as evidenced by hx CVA. Nutrition Goal: Patient to consume 75% of meals or greater. Goal met. Patient consuming 100% of most meals on heart healthy, soft and bite size diet. Eating lunch at time of visit. Last recorded weight is 74 kg. Recommend obtaining new weight. Bowel Motility: +BM today. Labs Reviewed: 12/01/19 BMP WNL Meds Noted: Pepcid, Protonix, KCl, Seroquel Additional Notes: No documented skin breakdown. Will continue to monitor with same goal. Nutrition Monitoring and Evaluation: Follow up in 7 days.
[2019-12-01 14:00] VITALS: BP 109/73; PULSE 69; RESP 17; TEMP 36.7; O2SAT 100
--- NOTE | 2019-12-01 15:58 | WPDNEURORHBP ---
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 seizures have not recurred in the past several days his delirium has resolved he denies any headache nausea vomiting chest pain shortness of breath fever chills sore throat Review of Systems Review of Systems: All systems reviewed & are unremarkable except as noted in HPI and below Functional Status Ambulation Ability Ability to Ambulate 10 Feet: Contact Guard Ability to Ambulate 50 Feet With 2 Turns: Contact Guard Ability to Ambulate 150 Feet: Contact Guard Ambulation Assistive Devices: Hand Hold Transfers Ability Ability to Transfer In/Out of Chair: Minimum Assistance X 1 Exam Const: General: comfortable and no acute distress HENMT: General nose exam: Normal nares present Mouth: Yes moist mucous membranes Eyes: General: appearance normal, both eyes and all related structures Neck: Neck: supple and no JVD Resp: Effort & Inspection: normal respiratory effort Auscultation: clear to auscultation bilaterally Cardio: Rate: regular rate Rhythm: regular rhythm GI: GI Palp: Yes Soft to palpation Auscultation: normal bowel sounds Skin: General skin exam: normal color and no rashes or lesions noted Neuro: Other: patient is awake and alert well oriented follows all commands left-sided hemiparesis is improving left-sided neglect is improving Extrem: General: normal to inspection Psych: Mental Status: mental status grossly normal Objective Data Vital Signs Vital Signs: Vital Signs - 24 hr 11/30/19 22:00 12/01/19 06:00 12/01/19 09:45 Temperature 37.6 C H 37.1 C Pulse Rate 77 82 82 Respiratory Rate 18 18 Blood Pressure 135/84 141/89 H Pulse Oximetry 99 100 12/01/19 14:00 Temperature 36.7 C Pulse Rate 69 Respiratory Rate 17 Blood Pressure 109/73 Pulse Oximetry 100 Intake/Output Intake/Output: Intake & Output 11/28/19 11/29/19 11/30/19 12/01/19 23:59 23:59 23:59 23:59 Intake Total 720 720 720 600 Balance 720 720 720 600 Meds/Results Medications: Active Medications Generic Name Dose Route Start Last Admin Trade Name Freq PRN Reason Stop Dose Admin Amlodipine Besylate 10 mg 11/22/19 09:00 12/01/19 09:45 Norvasc PO 10 mg DAILY [facility]SA Administration Aspirin 325 mg 11/22/19 09:00 12/01/19 09:44 Aspirin PO 325 mg DAILY [facility]SA Administration Atorvastatin Calcium 40 mg 11/22/19 09:00 12/01/19 09:44 Lipitor PO 40 mg DAILY [facility] Administration Clotrimazole 1 applic 11/23/19 12:03 Lotrisone Cream TOPICAL Q12HR PRN Rash Enoxaparin Sodium 40 mg 11/28/19 09:00 12/01/19 09:45 Lovenox SUB-Q 40 mg DAILY [facility] Administration Famotidine 20 mg 11/22/19 09:00 12/01/19 09:45 Pepcid PO 20 mg DAILY [facility] Administration Levetiracetam 1,500 mg 11/24/19 12:34 12/01/19 09:44 Keppra Tablet PO 1,500 mg Q12HR [facility] Administration Loratadine 10 mg 11/22/19 09:00 12/01/19 09:44 Claritin PO 10 mg DAILY [facility] Administration Metoprolol Tartrate 25 mg 11/22/19 09:00 12/01/19 09:45 Lopressor PO 25 mg DAILY [facility] Administration Pantoprazole Sodium 40 mg 11/22/19 09:00 12/01/19 09:44 Protonix PO 40 mg QAM [facility] Administration Potassium Chloride 20 meq 11/23/19 09:00 12/01/19 09:44 Kcl Powder (For Liquid) PO 20 meq DAILY [facility] Administration Quetiapine Fumarate 12.5 mg 11/28/19 19:25 12/01/19 09:46 Seroquel PO 12.5 mg QAM [facility] Administration Progress Note: A&P Assessment and Plan (1) Hyperlipidemia: Code(s): E78.5 - Hyperlipidemia, unspecified Status: Acute (2) Focal seizure: Code(s): R56.9 - Unspecified convulsions Status: Acute (3) Hypertension: Code(s): I10 - Essential (primary) hypertension Status: Acute (4) Left hemiparesis: Code(s): G81.94 - Hemiplegia,
[2019-12-01 22:00] VITALS: BP 115/56; PULSE 77; RESP 18; TEMP 37; O2SAT 98
[2019-12-02 06:00] VITALS: BP 137/56; PULSE 78; RESP 18; TEMP 37.2; O2SAT 96
[2019-12-02 08:00] VITALS: PULSE 78; RESP 18; O2SAT 96
[2019-12-02] MEDS: FAMOTIDINE 20 MG TABLET PO (09:28)
[2019-12-02] MEDS: PANTOPRAZOLE 40 MG TABLET PO (09:28)
[2019-12-02] MEDS: QUEtiapine FUMARATE 12.5 MG TABLET PO (09:28)
[2019-12-02] MEDS: LORATADINE 10 MG TABLET PO (09:28)
[2019-12-02] MEDS: levETIRAcetam 500 MG TABLET 1500 MG PO ×2 (09:28→20:25)
[2019-12-02 09:29] VITALS: PULSE 78
[2019-12-02] MEDS: ATORVASTATIN 40 MG TABLET PO (09:29)
[2019-12-02] MEDS: METOPROLOL TARTRATE 25 MG TABLET PO (09:29)
[2019-12-02] MEDS: ASPIRIN 325 MG TABLET PO (09:29)
[2019-12-02] MEDS: AMLODIPINE BESYLATE 5 MG TABLET 10 MG PO (09:29)
[2019-12-02] MEDS: ENOXAPARIN 40 MG/0.4 ML SYRINGE SUB-Q (09:29)
[2019-12-02] MEDS: POTASSIUM CHLORIDE 20 MEQ PACKET (FOR LIQUID) PO (09:29)
[2019-12-02 14:00] VITALS: BP 108/65; PULSE 67; RESP 20; TEMP 37.2; O2SAT 100
[2019-12-02 22:00] VITALS: BP 138/86; PULSE 77; RESP 18; TEMP 36.8; O2SAT 100
[2019-12-03 06:00] VITALS: BP 133/77; PULSE 100; RESP 18; TEMP 37.1; O2SAT 98
[2019-12-03 10:04] VITALS: PULSE 100
[2019-12-03] MEDS: LORATADINE 10 MG TABLET PO (10:04)
[2019-12-03] MEDS: PANTOPRAZOLE 40 MG TABLET PO (10:04)
[2019-12-03] MEDS: METOPROLOL TARTRATE 25 MG TABLET PO (10:04)
[2019-12-03] MEDS: QUEtiapine FUMARATE 12.5 MG TABLET PO (10:04)
[2019-12-03] MEDS: POTASSIUM CHLORIDE 20 MEQ PACKET (FOR LIQUID) PO (10:04)
[2019-12-03] MEDS: ATORVASTATIN 40 MG TABLET PO (10:05)
[2019-12-03] MEDS: FAMOTIDINE 20 MG TABLET PO (10:05)
[2019-12-03] MEDS: ASPIRIN 325 MG TABLET PO (10:05)
[2019-12-03] MEDS: levETIRAcetam 500 MG TABLET 1500 MG PO ×2 (10:06→20:17)
[2019-12-03] MEDS: ENOXAPARIN 40 MG/0.4 ML SYRINGE SUB-Q (10:06)
[2019-12-03] MEDS: AMLODIPINE BESYLATE 5 MG TABLET 10 MG PO (10:06)
--- NOTE | 2019-12-03 11:59 | WPDNEURORHBP ---
Subjective Date/time seen: 12/03/19 11:59 s/p right hemispheric stroke with left ryan and post stroke sizure improving Review of Systems Review of Systems: All systems reviewed & are unremarkable except as noted in HPI and below Functional Status Ambulation Ability Ability to Ambulate 10 Feet: Contact Guard Ability to Ambulate 50 Feet With 2 Turns: Contact Guard Ability to Ambulate 150 Feet: Contact Guard Ambulation Assistive Devices: Hand Hold Transfers Ability Ability to Transfer In/Out of Chair: Contact Guard Exam Const: General: cooperative HENMT: Head: normal to inspection Eyes: General: appearance normal, both eyes and all related structures Neck: Neck: normal visual inspection, full ROM and no lymphadenopathy Resp: Effort & Inspection: normal respiratory effort Auscultation: clear to auscultation bilaterally Cardio: Rate: regular rate Rhythm: regular rhythm GI: Auscultation: normal bowel sounds Skin: General skin exam: no rashes or lesions noted Neuro: General: oriented to person Motor exam (neuro): Abnormal motor strength present Plantar Reflex Responses: upgoing (positive Babinski): left Extrem: General: normal to inspection Psych: Appearance: grossly normal Objective Data Vital Signs Vital Signs: Vital Signs - 24 hr 12/02/19 14:00 12/02/19 22:00 12/03/19 06:00 Temperature 37.2 C 36.8 C 37.1 C Pulse Rate 67 77 100 Respiratory Rate 20 18 18 Blood Pressure 108/65 138/86 133/77 Pulse Oximetry 100 100 98 12/03/19 10:04 Temperature Pulse Rate 100 Respiratory Rate Blood Pressure Pulse Oximetry Intake/Output Intake/Output: Intake & Output 11/30/19 12/01/19 12/02/19 12/03/19 23:59 23:59 23:59 23:59 Intake Total 720 840 600 240 Balance 720 840 600 240 Meds/Results Medications: Active Medications Generic Name Dose Route Start Last Admin Trade Name Freq PRN Reason Stop Dose Admin Amlodipine Besylate 10 mg 11/22/19 09:00 12/03/19 10:06 Norvasc PO 10 mg DAILY [facility] Administration Aspirin 325 mg 11/22/19 09:00 12/03/19 10:05 Aspirin PO 325 mg DAILY [facility] Administration Atorvastatin Calcium 40 mg 11/22/19 09:00 12/03/19 10:05 Lipitor PO 40 mg DAILY [facility] Administration Clotrimazole 1 applic 05/28/20 12:03 Lotrisone Cream TOPICAL Q12HR PRN Rash Docusate Sodium 100 mg 12/02/19 09:43 Colace Capsule PO Q12H PRN Constipation Enoxaparin Sodium 40 mg 11/28/19 09:00 12/03/19 10:06 Lovenox SUB-Q 40 mg DAILY [facility] Administration Famotidine 20 mg 11/22/19 09:00 12/03/19 10:05 Pepcid PO 20 mg DAILY [facility] Administration Levetiracetam 1,500 mg 11/24/19 12:34 12/03/19 10:06 Keppra Tablet PO 1,500 mg Q12HR [facility] Administration Loratadine 10 mg 11/22/19 09:00 12/03/19 10:04 Claritin PO 10 mg DAILY [facility] Administration Metoprolol Tartrate 25 mg 11/22/19 09:00 12/03/19 10:04 Lopressor PO 25 mg DAILY [facility] Administration Pantoprazole Sodium 40 mg 11/22/19 09:00 12/03/19 10:04 Protonix PO 40 mg QAM [facility] Administration Potassium Chloride 20 meq 11/23/19 09:00 12/03/19 10:04 Kcl Powder (For Liquid) PO 20 meq DAILY [facility] Administration Quetiapine Fumarate 12.5 mg 11/28/19 19:25 12/03/19 10:04 Seroquel PO 12.5 mg QAM IL[facility] Administration Progress Note: A&P Assessment and Plan (1) Hyperlipidemia: Code(s): E78.5 - Hyperlipidemia, unspecified Status: Acute (2) Focal seizure: Code(s): R56.9 - Unspecified convulsions Status: Acute (3) Hypertension: Code(s): I10 - Essential (primary) hypertension Status: Acute (4) Left hemiparesis: Code(s): G81.94 - Hemiplegia, unspecified affecting left nondominant side Status: Acute (5) Stroke: Code(s): I63.9 - Cerebral infarction, unspecified Status: Acute Additional Plan continues as such
[2019-12-03 14:00] VITALS: BP 108/67; PULSE 65; RESP 18; TEMP 37; O2SAT 100
[2019-12-03 22:00] VITALS: BP 145/81; PULSE 69; RESP 18; TEMP 36.6; O2SAT 100
[2019-12-04 06:00] VITALS: BP 123/66; PULSE 96; RESP 18; TEMP 36.6; O2SAT 99
[2019-12-04 08:35] VITALS: PULSE 92; RESP 18; O2SAT 99
[2019-12-04] MEDS: POTASSIUM CHLORIDE 20 MEQ PACKET (FOR LIQUID) PO (09:33)
[2019-12-04] MEDS: FAMOTIDINE 20 MG TABLET PO (09:33)
[2019-12-04] MEDS: ATORVASTATIN 40 MG TABLET PO (09:33)
[2019-12-04] MEDS: AMLODIPINE BESYLATE 5 MG TABLET 10 MG PO (09:33)
[2019-12-04] MEDS: levETIRAcetam 500 MG TABLET 1500 MG PO ×2 (09:33→19:47)
[2019-12-04] MEDS: ENOXAPARIN 40 MG/0.4 ML SYRINGE SUB-Q (09:33)
[2019-12-04] MEDS: PANTOPRAZOLE 40 MG TABLET PO (09:33)
[2019-12-04 09:34] VITALS: PULSE 94
[2019-12-04] MEDS: METOPROLOL TARTRATE 25 MG TABLET PO (09:34)
[2019-12-04] MEDS: LORATADINE 10 MG TABLET PO (09:34)
[2019-12-04] MEDS: QUEtiapine FUMARATE 12.5 MG TABLET PO (09:34)
[2019-12-04] MEDS: ASPIRIN 325 MG TABLET PO (09:34)
[2019-12-04 14:00] VITALS: BP 118/64; PULSE 62; RESP 20; TEMP 36.6; O2SAT 100
[2019-12-04 22:00] VITALS: BP 158/77; PULSE 55; RESP 16; TEMP 36.4; O2SAT 100
[2019-12-05 06:00] VITALS: BP 111/69; PULSE 77; RESP 16; TEMP 36.7; O2SAT 97
[2019-12-05 08:00] VITALS: PULSE 77; RESP 16; O2SAT 97
[2019-12-05] MEDS: levETIRAcetam 500 MG TABLET 1500 MG PO ×2 (09:07→22:19)
[2019-12-05 09:08] VITALS: PULSE 77
[2019-12-05] MEDS: ENOXAPARIN 40 MG/0.4 ML SYRINGE SUB-Q (09:08)
[2019-12-05] MEDS: ASPIRIN 325 MG TABLET PO (09:08)
[2019-12-05] MEDS: QUEtiapine FUMARATE 12.5 MG TABLET PO (09:08)
[2019-12-05] MEDS: ATORVASTATIN 40 MG TABLET PO (09:08)
[2019-12-05] MEDS: FAMOTIDINE 20 MG TABLET PO (09:08)
[2019-12-05] MEDS: METOPROLOL TARTRATE 25 MG TABLET PO (09:08)
[2019-12-05] MEDS: POTASSIUM CHLORIDE 20 MEQ PACKET (FOR LIQUID) PO (09:08)
[2019-12-05] MEDS: LORATADINE 10 MG TABLET PO (09:08)
[2019-12-05] MEDS: AMLODIPINE BESYLATE 5 MG TABLET 10 MG PO (09:09)
[2019-12-05] MEDS: PANTOPRAZOLE 40 MG TABLET PO (09:09)
[2019-12-05 14:00] VITALS: BP 121/71; PULSE 59; RESP 17; TEMP 36.4; O2SAT 100
--- NOTE | 2019-12-05 14:54 | WPDNEURORHBP ---
Subjective Date/time seen: 12/05/19 14:54 Interval history: this pleasant the 79-year-old is here after having had a right hemispheric stroke with left-sided hemiparesis left-sided neglect and left-sided visual field defect he has not had any seizures in the past almost a week he denies any headache nausea vomiting chest pain shortness of breath fever chills sore throat Review of Systems Review of Systems: All systems reviewed & are unremarkable except as noted in HPI and below Functional Status Ambulation Ability Ability to Ambulate 10 Feet: Contact Guard Ability to Ambulate 50 Feet With 2 Turns: Contact Guard Ability to Ambulate 150 Feet: Contact Guard Ambulation Assistive Devices: Hand Hold Transfers Ability Ability to Transfer In/Out of Chair: Contact Guard Exam Const: General: comfortable and no acute distress HENMT: General nose exam: Normal nares present Mouth: Yes moist mucous membranes Eyes: General: appearance normal, both eyes and all related structures Neck: Neck: supple and no JVD Resp: Effort & Inspection: normal respiratory effort Auscultation: clear to auscultation bilaterally Cardio: Rate: regular rate Rhythm: regular rhythm GI: GI Palp: Yes Soft to palpation Auscultation: normal bowel sounds Skin: General skin exam: normal color and no rashes or lesions noted Neuro: Other: patient is awake and alert and well oriented time place person is speech language functions are normal he does have a cognitive deficit related to right hemispheric stroke with left-sided visual field defect neglect and hemiparesis improving Extrem: General: normal to inspection Psych: Mental Status: mental status grossly normal Objective Data Vital Signs Vital Signs: Vital Signs - 24 hr 12/04/19 22:00 12/05/19 06:00 12/05/19 08:00 Temperature 36.4 C 36.7 C Pulse Rate 55 L 77 77 Respiratory Rate 16 16 16 Blood Pressure 158/77 H 111/69 Pulse Oximetry 100 97 97 12/05/19 09:08 Temperature Pulse Rate 77 Respiratory Rate Blood Pressure Pulse Oximetry Intake/Output Intake/Output: Intake & Output 12/02/19 12/03/19 12/04/19 12/05/19 23:59 23:59 23:59 23:59 Intake Total 600 560 720 600 Balance 600 560 720 600 Meds/Results Medications: Active Medications Generic Name Dose Route Start Last Admin Trade Name Freq PRN Reason Stop Dose Admin Amlodipine Besylate 10 mg 11/22/19 09:00 12/05/19 09:09 Norvasc PO 10 mg DAILY [facility] Administration Aspirin 325 mg 11/22/19 09:00 12/05/19 09:08 Aspirin PO 325 mg DAILY [facility] Administration Atorvastatin Calcium 40 mg 11/22/19 09:00 12/05/19 09:08 Lipitor PO 40 mg DAILY [facility] Administration Clotrimazole 1 applic 11/23/19 12:03 Lotrisone Cream TOPICAL Q12HR PRN Rash Docusate Sodium 100 mg 12/02/19 09:43 Colace Capsule PO Q12H PRN Constipation Enoxaparin Sodium 40 mg 11/28/19 09:00 12/05/19 09:08 Lovenox SUB-Q 40 mg DAILY [facility] Administration Famotidine 20 mg 11/22/19 09:00 12/05/19 09:08 Pepcid PO 20 mg DAILY [facility] Administration Levetiracetam 1,500 mg 11/24/19 12:34 12/05/19 09:07 Keppra Tablet PO 1,500 mg Q12HR [facility] Administration Loratadine 10 mg 11/22/19 09:00 12/05/19 09:08 Claritin PO 10 mg DAILY [facility] Administration Metoprolol Tartrate 25 mg 11/22/19 09:00 12/05/19 09:08 Lopressor PO 25 mg DAILY [facility] Administration Pantoprazole Sodium 40 mg 11/22/19 09:00 12/05/19 09:09 Protonix PO 40 mg QAM [facility] Administration Potassium Chloride 20 meq 11/23/19 09:00 12/05/19 09:08 Kcl Powder (For Liquid) PO 20 meq DAILY [facility] Administration Quetiapine Fumarate 12.5 mg 11/28/19 19:25 12/05/19 09:08 Seroquel PO 12.5 mg QAM [facility] Administration Progress Note: A&P Assessment and Plan (1) Hyperlipidemia: Code(s): E78.5 - Hyperlipidemia, unspecified Status: Acute (2) Focal seizure: Code(s)
[2019-12-05 22:00] VITALS: BP 160/87; PULSE 64; RESP 20; TEMP 36.4; O2SAT 99
[2019-12-06 05:16] LABS: Basophils Percent Auto 0.5 % (0.2-1.2); Eosinophils Absolute Auto 0.1 K/mm3 (0-0.3); Eosinophils Percent Auto 2.7 % (0-4.4); Hematocrit 36.4 % (42.0-52.0); Immature Granulocyte Absolute 0.01 K/mm3 (0.00-0.031); Immature Granulocyte Percent A 0.2 % (0-0.5); Lymphocytes Absolute Auto 1.16 K/mm3 (0.9-3.2); Lymphocytes Percent Auto 28.6 % (18.3-44.2); Mean Corpuscular Hemoglobin 29.4 pg (26-34); Mean Corpuscular Volume 89.2 fl (80-100); Mean Platelet Volume 9.8 fl (7.4-10.4); Monocytes Absolute Auto 0.5 K/mm3 (0.1-0.6); Monocytes Percent Auto 12.1 % (2.6-8.5); Neutrophils Absolute Auto 2.3 K/mm3 (1.3-6.7); Neutrophils Percent Auto 55.9 % (45.5-73.1); Platelet Count Result 196 k/mm3 (150-375); Red Blood Count 4.08 M/mm3 (4.6-6.20); Red Cell Distribution Width 14.1 % (11.5-14.5); White Blood Count 4.1 K/mm3 (4.5-10.0)
[2019-12-06 05:33] LABS: Blood Urea Nitrogen 12 mg/dL (9-20); Calcium 8.8 mg/dL (8.4-10.2); Carbon Dioxide 29 mmol/L (22-30); Chloride 106 mmol/L (98-107); Estimated CRCL calculation 60 ml/min; Estimated Glomerular Filt Rate > 60; Glucose 88 mg/dL (75-110); Potassium 3.7 mmol/L (3.4-5.0); Sodium 139 mmol/L (137-145)
[2019-12-06 06:00] VITALS: BP 130/78; PULSE 67; RESP 18; TEMP 36.9; O2SAT 98
[2019-12-06 08:00] VITALS: PULSE 70; RESP 18; O2SAT 98
[2019-12-06] MEDS: FAMOTIDINE 20 MG TABLET PO (09:02)
[2019-12-06] MEDS: levETIRAcetam 500 MG TABLET 1500 MG PO ×2 (09:02→20:14)
[2019-12-06] MEDS: ASPIRIN 325 MG TABLET PO (09:02)
[2019-12-06] MEDS: AMLODIPINE BESYLATE 5 MG TABLET 10 MG PO (09:02)
[2019-12-06] MEDS: ENOXAPARIN 40 MG/0.4 ML SYRINGE SUB-Q (09:02)
[2019-12-06] MEDS: LORATADINE 10 MG TABLET PO (09:02)
[2019-12-06] MEDS: ATORVASTATIN 40 MG TABLET PO (09:02)
[2019-12-06 09:03] VITALS: PULSE 70
[2019-12-06] MEDS: QUEtiapine FUMARATE 12.5 MG TABLET PO (09:03)
[2019-12-06] MEDS: METOPROLOL TARTRATE 25 MG TABLET PO (09:03)
[2019-12-06] MEDS: POTASSIUM CHLORIDE 20 MEQ PACKET (FOR LIQUID) PO (09:03)
[2019-12-06] MEDS: PANTOPRAZOLE 40 MG TABLET PO (09:03)
--- NOTE | 2019-12-06 13:54 | WPDNEURORHBP ---
Subjective Date/time seen: 12/06/19 13:54 Interval history: this 79-year-old gentleman is recuperating here after having had a stroke which has left him with the left-sided hemiparesis and left-sided visual field defect and left-sided neglect his improving overall he has not had any seizures related to his stroke for several days now denies any headache nausea vomiting chest pain shortness of breath fever chills or sore throat Review of Systems Review of Systems: All systems reviewed & are unremarkable except as noted in HPI and below Functional Status Ambulation Ability Ability to Ambulate 10 Feet: Contact Guard Ability to Ambulate 50 Feet With 2 Turns: Contact Guard Ability to Ambulate 150 Feet: Contact Guard Ambulation Assistive Devices: Hand Hold Transfers Ability Ability to Transfer In/Out of Chair: Contact Guard Exam Const: General: comfortable and no acute distress HENMT: General nose exam: Normal nares present Mouth: Yes moist mucous membranes Eyes: General: appearance normal, both eyes and all related structures Neck: Neck: supple and no JVD Resp: Effort & Inspection: normal respiratory effort Auscultation: clear to auscultation bilaterally Cardio: Rate: regular rate Rhythm: regular rhythm GI: GI Palp: Yes Soft to palpation Auscultation: normal bowel sounds Skin: General skin exam: normal color and no rashes or lesions noted Neuro: Other: patient is awake and alert oriented x3 with 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 and possibly predating the stroke at the age of 79 overall he has improved left-sided hemiparesis is improved he is walking much better of course with the support and needing assistance Extrem: General: normal to inspection Psych: Mental Status: mental status grossly normal Objective Data Vital Signs Vital Signs: Vital Signs - 24 hr 12/05/19 14:00 12/05/19 22:00 12/06/19 06:00 Temperature 36.4 C L 36.4 C 36.9 C Pulse Rate 59 L 64 67 Respiratory Rate 17 20 18 Blood Pressure 121/71 160/87 H 130/78 Pulse Oximetry 100 99 98 12/06/19 08:00 12/06/19 09:03 Temperature Pulse Rate 70 70 Respiratory Rate 18 Blood Pressure Pulse Oximetry 98 Intake/Output Intake/Output: Intake & Output 12/03/19 12/04/19 12/05/19 12/06/19 23:59 23:59 23:59 23:59 Intake Total 890 858 5785 600 Balance 445 805 2425 600 Meds/Results Medications: Active Medications Generic Name Dose Route Start Last Admin Trade Name Freq PRN Reason Stop Dose Admin Amlodipine Besylate 10 mg 11/22/19 09:00 12/06/19 09:02 Norvasc PO 10 mg DAILY [facility] Administration Aspirin 325 mg 11/22/19 09:00 12/06/19 09:02 Aspirin PO 325 mg DAILY [facility]SA Administration Atorvastatin Calcium 40 mg 11/22/19 09:00 12/06/19 09:02 Lipitor PO 40 mg DAILY [facility]SA Administration Clotrimazole 1 applic 11/23/19 12:03 Lotrisone Cream TOPICAL Q12HR PRN Rash Docusate Sodium 100 mg 12/02/19 09:43 Colace Capsule PO Q12H PRN Constipation Enoxaparin Sodium 40 mg 11/28/19 09:00 12/06/19 09:02 Lovenox SUB-Q 40 mg DAILY [facility] Administration Famotidine 20 mg 11/22/19 09:00 12/06/19 09:02 Pepcid PO 20 mg DAILY [facility] Administration Levetiracetam 1,500 mg 11/24/19 12:34 12/06/19 09:02 Keppra Tablet PO 1,500 mg Q12HR [facility]SA Administration Loratadine 10 mg 11/22/19 09:00 12/06/19 09:02 Claritin PO 10 mg DAILY [facility]SA Administration Metoprolol Tartrate 25 mg 11/22/19 09:00 12/06/19 09:03 Lopressor PO 25 mg DAILY ILSA Administration Pantoprazole Sodium 40 mg 11/22/19 09:00 12/06/19 09:03 Protonix PO 40 mg QAM [facility] Administration Potassium Chloride 20 meq 11/23/19 09:00 12/06/19 09:03 Kcl Powder (For Liquid) PO 20 meq DAILY [facility] Administration Quetiapine Fumarate 12.5 mg 11/28/19 19:25 12/06/19 09:03 Seroquel PO 12.5 mg QAM IL[facility] Administration Labs Labs: Laboratory Results - la
[2019-12-06 14:00] VITALS: BP 116/66; PULSE 61; RESP 17; TEMP 36.6; O2SAT 100
[2019-12-06 22:00] VITALS: BP 147/87; PULSE 66; RESP 18; TEMP 36.6; O2SAT 100
[2019-12-07 06:00] VITALS: BP 130/78; PULSE 90; RESP 16; TEMP 36.9; O2SAT 100
[2019-12-07] MEDS: AMLODIPINE BESYLATE 5 MG TABLET 10 MG PO (09:15)
[2019-12-07] MEDS: ENOXAPARIN 40 MG/0.4 ML SYRINGE SUB-Q (09:15)
[2019-12-07] MEDS: ASPIRIN 325 MG TABLET PO (09:15)
[2019-12-07] MEDS: ATORVASTATIN 40 MG TABLET PO (09:15)
[2019-12-07] MEDS: POTASSIUM CHLORIDE 20 MEQ PACKET (FOR LIQUID) PO (09:15)
[2019-12-07 09:16] VITALS: PULSE 90
[2019-12-07] MEDS: FAMOTIDINE 20 MG TABLET PO (09:16)
[2019-12-07] MEDS: METOPROLOL TARTRATE 25 MG TABLET PO (09:16)
[2019-12-07] MEDS: LORATADINE 10 MG TABLET PO (09:16)
[2019-12-07] MEDS: levETIRAcetam 500 MG TABLET 1500 MG PO ×2 (09:16→20:26)
[2019-12-07] MEDS: QUEtiapine FUMARATE 12.5 MG TABLET PO (09:17)
[2019-12-07] MEDS: PANTOPRAZOLE 40 MG TABLET PO (09:17)
[2019-12-07 14:00] VITALS: BP 101/60; PULSE 64; RESP 16; TEMP 36.6; O2SAT 100
[2019-12-07 22:00] VITALS: BP 149/80; PULSE 69; RESP 20; TEMP 36.9; O2SAT 100
[2019-12-08 06:00] VITALS: BP 137/75; PULSE 78; RESP 18; TEMP 37.2; O2SAT 99
[2019-12-08] MEDS: FAMOTIDINE 20 MG TABLET PO (08:52)
[2019-12-08] MEDS: levETIRAcetam 500 MG TABLET 1500 MG PO ×2 (08:52→21:07)
[2019-12-08] MEDS: LORATADINE 10 MG TABLET PO (08:52)
[2019-12-08] MEDS: PANTOPRAZOLE 40 MG TABLET PO (08:52)
[2019-12-08] MEDS: POTASSIUM CHLORIDE 20 MEQ PACKET (FOR LIQUID) PO (08:52)
[2019-12-08] MEDS: ENOXAPARIN 40 MG/0.4 ML SYRINGE SUB-Q (08:52)
[2019-12-08] MEDS: AMLODIPINE BESYLATE 5 MG TABLET 10 MG PO (08:52)
[2019-12-08] MEDS: ASPIRIN 325 MG TABLET PO (08:52)
[2019-12-08 08:53] VITALS: PULSE 78
[2019-12-08] MEDS: QUEtiapine FUMARATE 12.5 MG TABLET PO (08:53)
[2019-12-08] MEDS: METOPROLOL TARTRATE 25 MG TABLET PO (08:53)
[2019-12-08] MEDS: ATORVASTATIN 40 MG TABLET PO (08:53)
--- NOTE | 2019-12-08 13:15 | WPDNEURORHBP ---
Subjective Date/time seen: 12/08/19 13:15 Interval history: this pleasant 79-year-old gentleman is here after having had right hemispheric stroke which has left him with left-sided neglect left-sided visual field defect a left-sided hemiparesis is walking significantly better and doing remarkably well he did not have any further seizures and does not have any further episode of psychosis denies any headache nausea vomiting chest pain shortness of breath fever chills sore throat Review of Systems Review of Systems: All systems reviewed & are unremarkable except as noted in HPI and below Functional Status Ambulation Ability Ability to Ambulate 10 Feet: Contact Guard Ability to Ambulate 50 Feet With 2 Turns: Contact Guard Ability to Ambulate 150 Feet: Contact Guard Ambulation Assistive Devices: Hand Hold Transfers Ability Ability to Transfer In/Out of Chair: Contact Guard Exam Const: General: comfortable and no acute distress HENMT: General nose exam: Normal nares present Mouth: Yes moist mucous membranes Eyes: General: appearance normal, both eyes and all related structures Neck: Neck: supple and no JVD Resp: Effort & Inspection: normal respiratory effort Auscultation: clear to auscultation bilaterally Cardio: Rate: regular rate Rhythm: regular rhythm GI: GI Palp: Yes Soft to palpation Auscultation: normal bowel sounds Skin: General skin exam: normal color and no rashes or lesions noted Neuro: Other: patient is awake and alert well oriented and improving neurological deficit and has not been in a psychotic episode as did 1 time only and I plan to discontinue his Seroquel Extrem: General: normal to inspection Psych: Mental Status: mental status grossly normal Objective Data Vital Signs Vital Signs: Vital Signs - 24 hr 12/07/19 14:00 12/07/19 22:00 12/08/19 06:00 Temperature 36.6 C 36.9 C 37.2 C Pulse Rate 64 69 78 Respiratory Rate 16 20 18 Blood Pressure 101/60 149/80 H 137/75 Pulse Oximetry 100 100 99 12/08/19 08:53 Temperature Pulse Rate 78 Respiratory Rate Blood Pressure Pulse Oximetry Intake/Output Intake/Output: Intake & Output 12/05/19 12/06/19 12/07/19 12/08/19 23:59 23:59 23:59 23:59 Intake Total 4552 708 8041 360 Balance 2122 137 7999 360 Meds/Results Medications: Active Medications Generic Name Dose Route Start Last Admin Trade Name Freq PRN Reason Stop Dose Admin Amlodipine Besylate 10 mg 11/22/19 09:00 12/08/19 08:52 Norvasc PO 10 mg DAILY [facility]SA Administration Aspirin 325 mg 11/22/19 09:00 12/08/19 08:52 Aspirin PO 325 mg DAILY [facility]SA Administration Atorvastatin Calcium 40 mg 11/22/19 09:00 12/08/19 08:53 Lipitor PO 40 mg DAILY [facility]SA Administration Clotrimazole 1 applic 11/23/19 12:03 Lotrisone Cream TOPICAL Q12HR PRN Rash Docusate Sodium 100 mg 12/02/19 09:43 Colace Capsule PO Q12H PRN Constipation Enoxaparin Sodium 40 mg 11/28/19 09:00 12/08/19 08:52 Lovenox SUB-Q 40 mg DAILY [facility]SA Administration Famotidine 20 mg 11/22/19 09:00 12/08/19 08:52 Pepcid PO 20 mg DAILY [facility]SA Administration Levetiracetam 1,500 mg 11/24/19 12:34 12/08/19 08:52 Keppra Tablet PO 1,500 mg Q12HR ILSA Administration Loratadine 10 mg 11/22/19 09:00 12/08/19 08:52 Claritin PO 10 mg DAILY ILSA Administration Metoprolol Tartrate 25 mg 11/22/19 09:00 12/08/19 08:53 Lopressor PO 25 mg DAILY ILSA Administration Pantoprazole Sodium 40 mg 11/22/19 09:00 12/08/19 08:52 Protonix PO 40 mg QAM ILSA Administration Potassium Chloride 20 meq 11/23/19 09:00 12/08/19 08:52 Kcl Powder (For Liquid) PO 20 meq DAILY [facility]SA Administration Quetiapine Fumarate 12.5 mg 11/28/19 19:25 12/08/19 08:53 Seroquel PO 12.5 mg QAM [facility] Administration Progress Note: A&P Assessment and Plan (1) Hyperlipidemia: Code(s): E78.5 - Hyperlipidemia, unspecified
[2019-12-08 14:00] VITALS: BP 127/70; PULSE 62; RESP 18; TEMP 36.6; O2SAT 100
--- NOTE | 2019-12-08 14:07 | PCDIET ---
Nutrition Follow-Up Complete: Nutrition Diagnosis: Decreased sodium/fat needs related to cardiovascular disease as evidenced by hx CVA. Nutrition Goal: Patient to consume 75% of meals or greater. Goal met. Patient consuming 100% of meals on heart healthy, soft and bite size diet. Patient reports good appetite and denies c/o. Diet education completed this date. No further recommendations at this time. Last recorded weight is 74 kg. Recommend obtaining new weight. Bowel Motility: Last documented BM on 12/05/19. Patient reports having BM on 12/07/19. Labs Reviewed: BMP WNL. Meds Noted: Pepcid, Protonix, KCl Additional Notes: No documented skin breakdown. Will continue to monitor with same goal. Nutrition Monitoring and Evaluation: Follow up in 5 days.
[2019-12-08 20:05] VITALS: BP 139/98; PULSE 70; RESP 16; TEMP 36.9; O2SAT 100
[2019-12-09 05:42] VITALS: BP 161/85; PULSE 69; RESP 18; TEMP 36.5; O2SAT 100
[2019-12-09 08:20] VITALS: PULSE 68; RESP 18; O2SAT 100
[2019-12-09] MEDS: FAMOTIDINE 20 MG TABLET PO (08:30)
[2019-12-09] MEDS: levETIRAcetam 500 MG TABLET 1500 MG PO ×2 (08:30→19:59)
[2019-12-09] MEDS: ASPIRIN 325 MG TABLET PO (08:30)
[2019-12-09] MEDS: AMLODIPINE BESYLATE 5 MG TABLET 10 MG PO (08:30)
[2019-12-09] MEDS: ATORVASTATIN 40 MG TABLET PO (08:30)
[2019-12-09 08:31] VITALS: PULSE 68
[2019-12-09] MEDS: METOPROLOL TARTRATE 25 MG TABLET PO (08:31)
[2019-12-09] MEDS: LORATADINE 10 MG TABLET PO (08:31)
[2019-12-09] MEDS: PANTOPRAZOLE 40 MG TABLET PO (08:31)
[2019-12-09] MEDS: POTASSIUM CHLORIDE 20 MEQ PACKET (FOR LIQUID) PO (08:31)
[2019-12-09 14:00] VITALS: BP 121/73; PULSE 63; RESP 18; TEMP 36.8; O2SAT 100
--- NOTE | 2019-12-09 17:08 | WPDNEURORHBP ---
Subjective Date/time seen: 12/09/19 17:08 Interval history: this 79-year-old gentleman is here after having a right hemispheric stroke with left-sided hemiparesis left-sided neglect and left-sided visual field defect is improving quite a bit and walking quite a bit denies any headache nausea vomiting change in the mental status fever chills sore throat and there has been no seizure activity noticed for past over week or so Review of Systems Review of Systems: All systems reviewed & are unremarkable except as noted in HPI and below Functional Status Ambulation Ability Ability to Ambulate 10 Feet: Contact Guard Ability to Ambulate 50 Feet With 2 Turns: Contact Guard Ability to Ambulate 150 Feet: Contact Guard Ambulation Assistive Devices: Hand Hold Transfers Ability Ability to Transfer In/Out of Chair: Contact Guard Exam Const: General: comfortable and no acute distress HENMT: General nose exam: Normal nares present Mouth: Yes moist mucous membranes Eyes: General: appearance normal, both eyes and all related structures Neck: Neck: supple and no JVD Resp: Effort & Inspection: normal respiratory effort Auscultation: clear to auscultation bilaterally Cardio: Rate: regular rate Rhythm: regular rhythm GI: GI Palp: Yes Soft to palpation Auscultation: normal bowel sounds Skin: General skin exam: normal color and no rashes or lesions noted Neuro: Other: patient is awake and alert well oriented time place and person his speech language functions are normal cranial examination is his visual field defect remains stable however the neglect has improved and left-sided hemiparesis has significantly improved Extrem: General: normal to inspection Psych: Mental Status: mental status grossly normal Objective Data Vital Signs Vital Signs: Vital Signs - 24 hr 12/08/19 20:05 12/09/19 05:42 12/09/19 08:20 Temperature 36.9 C 36.5 C Pulse Rate 70 69 68 Respiratory Rate 16 18 18 Blood Pressure 139/98 H 161/85 H Pulse Oximetry 100 100 100 12/09/19 08:31 12/09/19 14:00 Temperature 36.8 C Pulse Rate 68 63 Respiratory Rate 18 Blood Pressure 121/73 Pulse Oximetry 100 Intake/Output Intake/Output: Intake & Output 12/06/19 12/07/19 12/08/19 12/09/19 23:59 23:59 23:59 23:59 Intake Total 840 1200 1320 600 Balance 840 1200 1320 600 Meds/Results Medications: Active Medications Generic Name Dose Route Start Last Admin Trade Name Freq PRN Reason Stop Dose Admin Amlodipine Besylate 10 mg 11/22/19 09:00 12/09/19 08:30 Norvasc PO 10 mg DAILY [facility]SA Administration Aspirin 325 mg 11/22/19 09:00 12/09/19 08:30 Aspirin PO 325 mg DAILY ILSA Administration Atorvastatin Calcium 40 mg 11/22/19 09:00 12/09/19 08:30 Lipitor PO 40 mg DAILY [facility] Administration Clotrimazole 1 applic 11/23/19 12:03 Lotrisone Cream TOPICAL Q12HR PRN Rash Docusate Sodium 100 mg 12/02/19 09:43 Colace Capsule PO Q12H PRN Constipation Famotidine 20 mg 11/22/19 09:00 12/09/19 08:30 Pepcid PO 20 mg DAILY [facility] Administration Levetiracetam 1,500 mg 11/24/19 12:34 12/09/19 08:30 Keppra Tablet PO 1,500 mg Q12HR [facility]SA Administration Loratadine 10 mg 11/22/19 09:00 12/09/19 08:31 Claritin PO 10 mg DAILY [facility]SA Administration Metoprolol Tartrate 25 mg 11/22/19 09:00 12/09/19 08:31 Lopressor PO 25 mg DAILY [facility] Administration Pantoprazole Sodium 40 mg 11/22/19 09:00 12/09/19 08:31 Protonix PO 40 mg QAM [facility]SA Administration Potassium Chloride 20 meq 11/23/19 09:00 12/09/19 08:31 Kcl Powder (For Liquid) PO 20 meq DAILY [facility]SA Administration Progress Note: A&P Assessment and Plan (1) Hyperlipidemia: Code(s): E78.5 - Hyperlipidemia, unspecified Status: Acute (2) Focal seizure: Code(s): R56.9 - Unspecified convulsions Status: Acute (3) Hypertension: Code(s): I10 - Essential (primary)
[2019-12-09 20:00] VITALS: BP 132/75; PULSE 63; RESP 20; TEMP 36.9; O2SAT 100
[2019-12-10 05:35] VITALS: BP 110/68; PULSE 90; RESP 20; TEMP 37.2; O2SAT 98
[2019-12-10] MEDS: levETIRAcetam 500 MG TABLET 1500 MG PO ×2 (09:34→21:07)
[2019-12-10 09:35] VITALS: PULSE 88; RESP 20; O2SAT 98
[2019-12-10] MEDS: ASPIRIN 325 MG TABLET PO (09:35)
[2019-12-10] MEDS: METOPROLOL TARTRATE 25 MG TABLET PO (09:35)
[2019-12-10] MEDS: FAMOTIDINE 20 MG TABLET PO (09:35)
[2019-12-10] MEDS: ATORVASTATIN 40 MG TABLET PO (09:35)
[2019-12-10] MEDS: LORATADINE 10 MG TABLET PO (09:35)
[2019-12-10] MEDS: PANTOPRAZOLE 40 MG TABLET PO (09:35)
[2019-12-10] MEDS: POTASSIUM CHLORIDE 20 MEQ PACKET (FOR LIQUID) PO (09:35)
[2019-12-10] MEDS: AMLODIPINE BESYLATE 5 MG TABLET 10 MG PO (09:35)
[2019-12-10 14:00] VITALS: BP 118/71; PULSE 53; RESP 19; TEMP 36.7; O2SAT 100
--- NOTE | 2019-12-10 16:15 | PC.NURSE ---
Patient was seated on toilet and began having shaking of the left leg intermittently. Dr. Frost was called and stated patient was having seizure. Stat 750 Keppra was ordered and given and previous dosage of 1500 Keppra BID was increased to 1750 Keppra BID.
[2019-12-10] MEDS: levETIRAcetam Tablet 250 MG, levETIRAcetam Tablet 500 MG 750 MG PO (16:24)
--- NOTE | 2019-12-10 16:45 | PC.NURSE ---
Patient has been at [facility] station since his seizure and has received [address] Frost has re-evaluated him for movement, speech and any possible side effects of seizure with nothing abnormal being noted. Patient is able to answer questions, raise/move his extremities and states he has no pain or headache. Will report to police shift commander to continue to monitor for any changes and to call Dr. Frost if there are any concerns or questions regarding patient's total well being, physically and/or mentally.
--- NOTE | 2019-12-10 18:15 | WPDNEURORHBP ---
Subjective Date/time seen: 12/10/19 18:15 Interval history: this 79-year-old gentleman is here post stroke with left-sided hemiparesis from which he is improving quite a bit he had a brief focal seizure affecting the left side of the body and this is the occurrence after over a week of stabilization with the present dose of the Keppra which I had to increase it the seizure supported by itself and he is back to almost his baseline and able to lift his arm and his will he denies any headache nausea vomiting chest pain shortness of breath fever chills sore throat Review of Systems Review of Systems: All systems reviewed & are unremarkable except as noted in HPI and below Functional Status Ambulation Ability Ability to Ambulate 10 Feet: Minimum Assistance X 1 Ability to Ambulate 50 Feet With 2 Turns: Contact Guard Ability to Ambulate 150 Feet: Contact Guard Ambulation Assistive Devices: Hand Hold Transfers Ability Ability to Transfer In/Out of Chair: Contact Guard Exam Const: General: comfortable and no acute distress HENMT: General nose exam: Normal nares present Mouth: Yes moist mucous membranes Eyes: General: appearance normal, both eyes and all related structures Neck: Neck: supple and no JVD Resp: Effort & Inspection: normal respiratory effort Auscultation: clear to auscultation bilaterally Cardio: Rate: regular rate Rhythm: regular rhythm GI: GI Palp: Yes Soft to palpation Auscultation: normal bowel sounds Skin: General skin exam: normal color and no rashes or lesions noted Neuro: Other: patient is awake and alert and well oriented and his left-sided hemiparesis is improving after having had a brief focal lateralizing left-sided seizure Extrem: General: normal to inspection Psych: Mental Status: mental status grossly normal Objective Data Vital Signs Vital Signs: Vital Signs - 24 hr 12/09/19 20:00 12/10/19 05:35 12/10/19 09:35 Temperature 36.9 C 37.2 C Pulse Rate 63 90 88 Respiratory Rate 20 20 20 Blood Pressure 132/75 110/68 Pulse Oximetry 100 98 98 12/10/19 14:00 Temperature 36.7 C Pulse Rate 53 L Respiratory Rate 19 Blood Pressure 118/71 Pulse Oximetry 100 Intake/Output Intake/Output: Intake & Output 12/07/19 12/08/19 12/09/19 12/10/19 23:59 23:59 23:59 23:59 Intake Total 1200 1320 840 600 Balance 1200 1320 840 600 Meds/Results Medications: Active Medications Generic Name Dose Route Start Last Admin Trade Name Freq PRN Reason Stop Dose Admin Amlodipine Besylate 10 mg 11/22/19 09:00 12/10/19 09:35 Norvasc PO 10 mg DAILY ILSA Administration Aspirin 325 mg 11/22/19 09:00 12/10/19 09:35 Aspirin PO 325 mg DAILY ILSA Administration Atorvastatin Calcium 40 mg 11/22/19 09:00 12/10/19 09:35 Lipitor PO 40 mg DAILY ILSA Administration Clotrimazole 1 applic 11/23/19 12:03 Lotrisone Cream TOPICAL Q12HR PRN Rash Docusate Sodium 100 mg 12/02/19 09:43 Colace Capsule PO Q12H PRN Constipation Famotidine 20 mg 11/22/19 09:00 12/10/19 09:35 Pepcid PO 20 mg DAILY ILSA Administration Levetiracetam 1,500 mg 12/10/19 21:00 Keppra Tablet PO Q12HR ILSA Levetiracetam 250 mg 12/10/19 21:00 Keppra Tablet PO Q12HR ILSA Loratadine 10 mg 11/22/19 09:00 12/10/19 09:35 Claritin PO 10 mg DAILY ILSA Administration Metoprolol Tartrate 25 mg 11/22/19 09:00 12/10/19 09:35 Lopressor PO 25 mg DAILY [facility] Administration Pantoprazole Sodium 40 mg 11/22/19 09:00 12/10/19 09:35 Protonix PO 40 mg QAM ILSA Administration Potassium Chloride 20 meq 11/23/19 09:00 12/10/19 09:35 Kcl Powder (For Liquid) PO 20 meq DAILY ILSA Administration Progress Note: A&P Assessment and Plan (1) Hyperlipidemia: Code(s): E78.5 - Hyperlipidemia, unspecified Status: Acute (2) Focal seizure: Code(s): R56.9 - Unspecified convulsions Status: Acute (3
[2019-12-10] MEDS: levETIRAcetam 250 MG TABLET PO (21:07)
[2019-12-10 22:00] VITALS: BP 151/79; PULSE 65; RESP 16; TEMP 36.8; O2SAT 100
[2019-12-10 23:59] VITALS: BP 127/70; PULSE 70; RESP 20; TEMP 36.9; O2SAT 100
[2019-12-11] MEDS: PANTOPRAZOLE 40 MG TABLET PO (01:56)
[2019-12-11 06:00] VITALS: BP 140/83; PULSE 86; RESP 20; TEMP 36.8; O2SAT 100; BMI 25.3
--- NOTE | 2019-12-11 08:01 | PCPTNOTE ---
Mr. Solano was unable to receive 30 minutes of his therapy today due to medical changes/issues pending. Yuko Mcfadden PT
[2019-12-11] MEDS: AMLODIPINE BESYLATE 5 MG TABLET 10 MG PO (09:31)
[2019-12-11] MEDS: ASPIRIN 325 MG TABLET PO (09:32)
[2019-12-11] MEDS: levETIRAcetam 500 MG TABLET 1500 MG PO ×2 (09:32→20:18)
[2019-12-11 09:33] VITALS: PULSE 86
[2019-12-11] MEDS: LORATADINE 10 MG TABLET PO (09:33)
[2019-12-11] MEDS: levETIRAcetam 250 MG TABLET PO ×2 (09:33→20:19)
[2019-12-11] MEDS: ATORVASTATIN 40 MG TABLET PO (09:33)
[2019-12-11] MEDS: METOPROLOL TARTRATE 25 MG TABLET PO (09:33)
[2019-12-11] MEDS: POTASSIUM CHLORIDE 20 MEQ PACKET (FOR LIQUID) PO (09:33)
[2019-12-11] MEDS: FAMOTIDINE 20 MG TABLET PO (09:33)
[2019-12-11 14:00] VITALS: BP 138/71; PULSE 74; RESP 18; TEMP 36.6; O2SAT 100
--- NOTE | 2019-12-11 14:35 | PCSTNOTE ---
Therapy on hold this date due to decline in medical status.
--- NOTE | 2019-12-11 14:39 | PCOTNOTE ---
OT treatment held this AM due to change in medical status and patient out for testing. Will follow pending physician recommendation.
[2019-12-11 22:00] VITALS: BP 134/76; PULSE 71; RESP 18; TEMP 36.7; O2SAT 100
[2019-12-12 06:00] VITALS: BP 114/68; PULSE 81; RESP 18; TEMP 37.3; O2SAT 96
[2019-12-12 08:00] VITALS: PULSE 68; RESP 18; O2SAT 100
[2019-12-12 08:30] VITALS: O2SAT 97
[2019-12-12] MEDS: AMLODIPINE BESYLATE 5 MG TABLET 10 MG PO (09:00)
[2019-12-12] MEDS: FAMOTIDINE 20 MG TABLET PO (09:00)
[2019-12-12] MEDS: ASPIRIN 325 MG TABLET PO (09:00)
[2019-12-12] MEDS: POTASSIUM CHLORIDE 20 MEQ PACKET (FOR LIQUID) PO (09:00)
[2019-12-12 09:01] VITALS: PULSE 80
[2019-12-12] MEDS: METOPROLOL TARTRATE 25 MG TABLET PO (09:01)
[2019-12-12] MEDS: LORATADINE 10 MG TABLET PO (09:01)
[2019-12-12] MEDS: ATORVASTATIN 40 MG TABLET PO (09:02)
[2019-12-12] MEDS: levETIRAcetam 500 MG TABLET 1500 MG PO ×2 (09:02→19:43)
[2019-12-12] MEDS: levETIRAcetam 250 MG TABLET PO ×2 (09:03→19:42)
[2019-12-12] MEDS: PANTOPRAZOLE 40 MG TABLET PO (09:06)
[2019-12-12] MEDS: DIVALPROEX SODIUM 250 MG TABEC PO ×2 (13:34→17:04)
[2019-12-12 14:00] VITALS: BP 116/71; PULSE 70; RESP 17; TEMP 37; O2SAT 100
[2019-12-12 14:02] LABS: SARS-CoV-2 RNA PCR Negative
--- NOTE | 2019-12-12 15:08 | WPDNEURORHBP ---
Subjective Date/time seen: 12/12/19 15:08 Interval history: patient had increased left-sided hemiparesis which was in a background of having had focal more so than the complex partial seizure there at fair control the brain MRI does not reveal any acute evidence which the CT was being read as the edema etc however I felt these with the same findings as the patient had on the previous workup from the other hospital overall he has improved between yesterday and today and continues to improve he denies any headache nausea vomiting chest pain shortness of breath fever chills sore throat Review of Systems Review of Systems: All systems reviewed & are unremarkable except as noted in HPI and below Functional Status Ambulation Ability Ability to Ambulate 10 Feet: Moderate Assistance X 2 Ability to Ambulate 50 Feet With 2 Turns: Moderate Assistance X 2 Ability to Ambulate 150 Feet: Contact Guard Ambulation Assistive Devices: Hand Hold Transfers Ability Ability to Transfer In/Out of Chair: Moderate Assistance X 2 Exam Const: General: comfortable and no acute distress HENMT: General nose exam: Normal nares present Mouth: Yes moist mucous membranes Eyes: General: appearance normal, both eyes and all related structures Neck: Neck: supple and no JVD Resp: Effort & Inspection: normal respiratory effort Auscultation: clear to auscultation bilaterally Cardio: Rate: regular rate Rhythm: regular rhythm GI: GI Palp: Yes Soft to palpation Auscultation: normal bowel sounds Skin: General skin exam: normal color and no rashes or lesions noted Neuro: Other: patient is awake and alert well oriented with normal speech and language function improving left-sided hemiparesis is stable visual field defect improving left-sided neglect Extrem: General: normal to inspection Psych: Mental Status: mental status grossly normal Objective Data Vital Signs Vital Signs: Vital Signs - 24 hr 12/11/19 22:00 12/12/19 06:00 12/12/19 09:01 Temperature 36.7 C 37.3 C Pulse Rate 71 81 80 Respiratory Rate 18 18 Blood Pressure 134/76 114/68 Pulse Oximetry 100 96 12/12/19 14:00 Temperature 37.0 C Pulse Rate 70 Respiratory Rate 17 Blood Pressure 116/71 Pulse Oximetry 100 Intake/Output Intake/Output: Intake & Output 12/09/19 12/10/19 12/11/19 12/12/19 23:59 23:59 23:59 23:59 Intake Total 840 840 840 600 Balance 840 840 840 600 Meds/Results Medications: Active Medications Generic Name Dose Route Start Last Admin Trade Name Freq PRN Reason Stop Dose Admin Amlodipine Besylate 10 mg 11/22/19 09:00 12/12/19 09:00 Norvasc PO 10 mg DAILY ILSA Administration Aspirin 325 mg 11/22/19 09:00 12/12/19 09:00 Aspirin PO 325 mg DAILY [facility]SA Administration Atorvastatin Calcium 40 mg 11/22/19 09:00 12/12/19 09:02 Lipitor PO 40 mg DAILY [facility]SA Administration Clotrimazole 1 applic 11/23/19 12:03 Lotrisone Cream TOPICAL Q12HR PRN Rash Divalproex Sodium 250 mg 12/12/19 12:00 12/12/19 13:34 Depakote Ec Tab PO 250 mg BID ILSA Administration Docusate Sodium 100 mg 12/02/19 09:43 Colace Capsule PO Q12H PRN Constipation Famotidine 20 mg 11/22/19 09:00 12/12/19 09:00 Pepcid PO 20 mg DAILY [facility]SA Administration Levetiracetam 1,500 mg 12/10/19 21:00 12/12/19 09:02 Keppra Tablet PO 1,500 mg Q12HR [facility]SA Administration Levetiracetam 250 mg 12/10/19 21:00 12/12/19 09:03 Keppra Tablet PO 250 mg Q12HR [facility]SA Administration Loratadine 10 mg 11/22/19 09:00 12/12/19 09:01 Claritin PO 10 mg DAILY [facility]SA Administration Metoprolol Tartrate 25 mg 11/22/19 09:00 12/12/19 09:01 Lopressor PO 25 mg DAILY [facility]SA Administration Pantoprazole Sodium 40 mg 11/22/19 09:00 12/12/19 09:06 Protonix PO 40 mg QAM ILSA Administration Potassium Chloride 20 meq 11/23/19 09:00 12/12/19 09:00 Kcl Powder (For Liquid) PO 20 meq DAILY [facility]
[2019-12-12 22:00] VITALS: BP 131/81; PULSE 65; RESP 18; TEMP 36.7; O2SAT 100
[2019-12-12 23:15] LABS: Levetiracetam Keppra 57.1 mcg/mL (12.0-46.0)
[2019-12-13 05:15] LABS: Basophils Percent Auto 0.3 % (0.2-1.2); Eosinophils Absolute Auto 0.2 K/mm3 (0-0.3); Eosinophils Percent Auto 2.6 % (0-4.4); Hematocrit 36.9 % (42.0-52.0); Hemoglobin 12.3 g/dL (14.0-18.0); Immature Granulocyte Absolute 0.03 K/mm3 (0.00-0.031); Immature Granulocyte Percent A 0.5 % (0-0.5); Lymphocytes Absolute Auto 1.82 K/mm3 (0.9-3.2); Mean Corpuscular HGB Conc 33.3 g/dl (32-36); Mean Corpuscular Hemoglobin 29.6 pg (26-34); Mean Corpuscular Volume 88.9 fl (80-100); Mean Platelet Volume 10.4 fl (7.4-10.4); Monocytes Absolute Auto 0.8 K/mm3 (0.1-0.6); Monocytes Percent Auto 13.3 % (2.6-8.5); Neutrophils Absolute Auto 3.2 K/mm3 (1.3-6.7); Neutrophils Percent Auto 53.3 % (45.5-73.1); Platelet Count Result 166 k/mm3 (150-375); Red Blood Count 4.15 M/mm3 (4.6-6.20); Red Cell Distribution Width 14.4 % (11.5-14.5); White Blood Count 6.1 K/mm3 (4.5-10.0)
[2019-12-13 05:21] LABS: Blood Urea Nitrogen 15 mg/dL (9-20); Calcium 8.8 mg/dL (8.4-10.2); Carbon Dioxide 29 mmol/L (22-30); Chloride 105 mmol/L (98-107); Estimated CRCL calculation 54 ml/min; Estimated Glomerular Filt Rate > 60; Glucose 93 mg/dL (75-110); Potassium 3.6 mmol/L (3.4-5.0); Sodium 139 mmol/L (137-145)
[2019-12-13 06:08] VITALS: BP 139/76; PULSE 71; RESP 18; TEMP 37.1; O2SAT 100
[2019-12-13] MEDS: ASPIRIN 325 MG TABLET PO (09:21)
[2019-12-13] MEDS: AMLODIPINE BESYLATE 5 MG TABLET 10 MG PO (09:21)
[2019-12-13] MEDS: ATORVASTATIN 40 MG TABLET PO (09:21)
[2019-12-13] MEDS: FAMOTIDINE 20 MG TABLET PO (09:21)
[2019-12-13] MEDS: DIVALPROEX SODIUM 250 MG TABEC PO ×2 (09:21→16:37)
[2019-12-13] MEDS: levETIRAcetam 500 MG TABLET 1500 MG PO ×2 (09:22→22:15)
[2019-12-13] MEDS: levETIRAcetam 250 MG TABLET PO ×2 (09:22→22:15)
[2019-12-13 09:23] VITALS: PULSE 71
[2019-12-13] MEDS: LORATADINE 10 MG TABLET PO (09:23)
[2019-12-13] MEDS: METOPROLOL TARTRATE 25 MG TABLET PO (09:23)
[2019-12-13] MEDS: PANTOPRAZOLE 40 MG TABLET PO (09:23)
[2019-12-13] MEDS: POTASSIUM CHLORIDE 20 MEQ PACKET (FOR LIQUID) PO (09:24)
[2019-12-13 09:34] VITALS: O2SAT 100
--- NOTE | 2019-12-13 13:53 | WPDNEURORHBP ---
Subjective Date/time seen: 12/13/19 13:53 Interval history: this 79-year-old gentleman is here post stroke and has had focal and partial complex seizure has been seizure-free for past at least 3 days and his postictal left-sided hemiparesis is improving and his walking quite good the neglect is improved the visual field defect remains the same he denies any headache nausea vomiting chest pain shortness of breath Review of Systems Review of Systems: All systems reviewed & are unremarkable except as noted in HPI and below Functional Status Ambulation Ability Ability to Ambulate 10 Feet: Moderate Assistance X 2 Ability to Ambulate 50 Feet With 2 Turns: Moderate Assistance X 2 Ability to Ambulate 150 Feet: Moderate Assistance X 2 Ambulation Assistive Devices: Hand Hold Transfers Ability Ability to Transfer In/Out of Chair: Moderate Assistance X 2 Exam Const: General: comfortable and no acute distress HENMT: General nose exam: Normal nares present Mouth: Yes moist mucous membranes Eyes: General: appearance normal, both eyes and all related structures Neck: Neck: supple and no JVD Resp: Effort & Inspection: normal respiratory effort Auscultation: clear to auscultation bilaterally Cardio: Rate: regular rate Rhythm: regular rhythm GI: GI Palp: Yes Soft to palpation Auscultation: normal bowel sounds Skin: General skin exam: normal color and no rashes or lesions noted Neuro: Other: patient has much improved however does have a left-sided hemiparesis and left-sided visual field defect no further notes seizures are noted Extrem: General: normal to inspection Psych: Mental Status: mental status grossly normal Objective Data Vital Signs Vital Signs: Vital Signs - 24 hr 12/12/19 14:00 12/12/19 22:00 12/13/19 06:08 Temperature 37.0 C 36.7 C 37.1 C Pulse Rate 70 65 71 Respiratory Rate 17 18 18 Blood Pressure 116/71 131/81 139/76 Pulse Oximetry 100 100 100 12/13/19 09:23 Temperature Pulse Rate 71 Respiratory Rate Blood Pressure Pulse Oximetry Intake/Output Intake/Output: Intake & Output 12/10/19 12/11/19 12/12/19 12/13/19 23:59 23:59 23:59 23:59 Intake Total 988 166 9308 360 Balance 034 475 8470 360 Meds/Results Medications: Active Medications Generic Name Dose Route Start Last Admin Trade Name Freq PRN Reason Stop Dose Admin Amlodipine Besylate 10 mg 11/22/19 09:00 12/13/19 09:21 Norvasc PO 10 mg DAILY ILSA Administration Aspirin 325 mg 11/22/19 09:00 12/13/19 09:21 Aspirin PO 325 mg DAILY ILSA Administration Atorvastatin Calcium 40 mg 11/22/19 09:00 12/13/19 09:21 Lipitor PO 40 mg DAILY ILSA Administration Clotrimazole 1 applic 11/23/19 12:03 Lotrisone Cream TOPICAL Q12HR PRN Rash Divalproex Sodium 250 mg 12/12/19 12:00 12/13/19 09:21 Depakote Ec Tab PO 250 mg BID ILSA Administration Docusate Sodium 100 mg 12/02/19 09:43 Colace Capsule PO Q12H PRN Constipation Famotidine 20 mg 11/22/19 09:00 12/13/19 09:21 Pepcid PO 20 mg DAILY ILSA Administration Levetiracetam 1,500 mg 12/10/19 21:00 12/13/19 09:22 Keppra Tablet PO 1,500 mg Q12HR ILSA Administration Levetiracetam 250 mg 12/10/19 21:00 12/13/19 09:22 Keppra Tablet PO 250 mg Q12HR ILSA Administration Loratadine 10 mg 11/22/19 09:00 12/13/19 09:23 Claritin PO 10 mg DAILY ILSA Administration Metoprolol Tartrate 25 mg 11/22/19 09:00 12/13/19 09:23 Lopressor PO 25 mg DAILY ILSA Administration Pantoprazole Sodium 40 mg 11/22/19 09:00 12/13/19 09:23 Protonix PO 40 mg QAM ILSA Administration Potassium Chloride 20 meq 11/23/19 09:00 12/13/19 09:24 Kcl Powder (For Liquid) PO 20 meq DAILY ILSA Administration Radiology Results: ITS Impressions Head CT 12/11/19 06:45 IMPRESSION: 1. Areas of low attenuation involving the white matter of the right temporal parietal occipital lobe
[2019-12-13 14:00] VITALS: BP 114/75; PULSE 72; RESP 18; TEMP 36.8; O2SAT 100
--- NOTE | 2019-12-13 17:50 | PCPTNOTE ---
Delayed entry for 12/10: physical therapy unable to see patient for morning therapy due to patient on hold for further medical workup. Leanna Holland, PT, DPT
[2019-12-13 22:00] VITALS: BP 138/81; PULSE 65; RESP 16; TEMP 36.9; O2SAT 100
[2019-12-14 06:00] VITALS: BP 147/59; PULSE 77; RESP 18; TEMP 37.1; O2SAT 95
[2019-12-14] MEDS: AMLODIPINE BESYLATE 5 MG TABLET 10 MG PO (08:59)
[2019-12-14] MEDS: ATORVASTATIN 40 MG TABLET PO (09:00)
[2019-12-14] MEDS: ASPIRIN 325 MG TABLET PO (09:00)
[2019-12-14] MEDS: DIVALPROEX SODIUM 250 MG TABEC PO ×2 (09:00→17:02)
[2019-12-14] MEDS: FAMOTIDINE 20 MG TABLET PO (09:00)
[2019-12-14 09:01] VITALS: PULSE 77
[2019-12-14] MEDS: METOPROLOL TARTRATE 25 MG TABLET PO (09:01)
[2019-12-14] MEDS: levETIRAcetam 250 MG TABLET PO ×2 (09:01→20:38)
[2019-12-14] MEDS: LORATADINE 10 MG TABLET PO (09:01)
[2019-12-14] MEDS: levETIRAcetam 500 MG TABLET 1500 MG PO ×2 (09:01→20:38)
[2019-12-14] MEDS: PANTOPRAZOLE 40 MG TABLET PO (09:02)
[2019-12-14] MEDS: POTASSIUM CHLORIDE 20 MEQ PACKET (FOR LIQUID) PO (09:02)
--- NOTE | 2019-12-14 09:38 | WPDNEURORHBP ---
Subjective Date/time seen: 12/14/19 09:38 Interval history: this 79-year-old is here after having had a right hemispheric stroke which has left him with left-sided hemiparesis left-sided visual field defect left-sided neglect last night he had a confusional episode and had increased weakness on the left side which is most likely postictal in nature he has already been started with Depakote this morning he is better however still needing 2 people assist which is different than he was doing previously he was scheduled to go to [facility] that has been denied and have left a message for them around 930 to call me back for the peer to peer the patient indeed needs a residential facility or else and other several days of hospitalization here on the acute medical floor Review of Systems Review of Systems: All systems reviewed & are unremarkable except as noted in HPI and below Functional Status Ambulation Ability Ability to Ambulate 10 Feet: Moderate Assistance X 2 Ability to Ambulate 50 Feet With 2 Turns: Moderate Assistance X 2 Ability to Ambulate 150 Feet: Moderate Assistance X 2 Ambulation Assistive Devices: Hand Hold Transfers Ability Ability to Transfer In/Out of Chair: Moderate Assistance X 2 Exam Const: General: comfortable and no acute distress HENMT: General nose exam: Normal nares present Mouth: Yes moist mucous membranes Eyes: General: appearance normal, both eyes and all related structures Neck: Neck: supple and no JVD Resp: Effort & Inspection: normal respiratory effort Auscultation: clear to auscultation bilaterally Cardio: Rate: regular rate Rhythm: regular rhythm GI: GI Palp: Yes Soft to palpation Auscultation: normal bowel sounds Skin: General skin exam: normal color and no rashes or lesions noted Neuro: Other: patient is awake alert well oriented he clearly has more weakness on the left side and needing assistance of 2 people to do the activities of daily living which is most likely related to a postictal phenomena and a confusional state last night the recent MRI done did not reveal any new stroke Extrem: General: normal to inspection Psych: Mental Status: mental status grossly normal Other: I have left a message for for peer to peer to get him approved for the residential facility where he should be going because of the ongoing partial complex seizures and increased left-sided hemiparesis rest of the management will continue as it is Objective Data Vital Signs Vital Signs: Vital Signs - 24 hr 12/13/19 14:00 12/13/19 22:00 12/14/19 06:00 Temperature 36.8 C 36.9 C 37.1 C Pulse Rate 72 65 77 Respiratory Rate 18 16 18 Blood Pressure 114/75 138/81 147/59 H Pulse Oximetry 100 100 95 12/14/19 09:01 Temperature Pulse Rate 77 Respiratory Rate Blood Pressure Pulse Oximetry Intake/Output Intake/Output: Intake & Output 12/11/19 12/12/19 12/13/19 12/14/19 23:59 23:59 23:59 23:59 Intake Total 840 1080 840 480 Balance 840 1080 840 480 Meds/Results Medications: Active Medications Generic Name Dose Route Start Last Admin Trade Name Freq PRN Reason Stop Dose Admin Amlodipine Besylate 10 mg 11/22/19 09:00 12/14/19 08:59 Norvasc PO 10 mg DAILY ILSA Administration Aspirin 325 mg 11/22/19 09:00 12/14/19 09:00 Aspirin PO 325 mg DAILY ILSA Administration Atorvastatin Calcium 40 mg 11/22/19 09:00 12/14/19 09:00 Lipitor PO 40 mg DAILY ILSA Administration Clotrimazole 1 applic 11/23/19 12:03 Lotrisone Cream TOPICAL Q12HR PRN Rash Divalproex Sodium 250 mg 12/12/19 12:00 12/14/19 09:00 Depakote Ec Tab PO 250 mg BID ILSA Administration Docusate Sodium 100 mg 12/02/19 09:43 Colace Capsule PO Q12H PRN Constipation Famotidine 20 mg 11/22/19 09:00 12/14/19 09:00 Pepcid PO 20 mg DAILY ILSA Administration Levetiracetam 1,500 mg 12/10/19 21:00 12/14/19 09:01 Keppra Tablet PO 1,500 mg
[2019-12-14 14:00] VITALS: BP 120/78; PULSE 70; RESP 20; TEMP 36.6; O2SAT 100
[2019-12-14 21:43] VITALS: BP 141/78; PULSE 88; RESP 18; TEMP 36.6; O2SAT 100
[2019-12-15 06:00] VITALS: BP 131/74; PULSE 81; RESP 18; TEMP 37.4; O2SAT 96
[2019-12-15] MEDS: AMLODIPINE BESYLATE 5 MG TABLET 10 MG PO (07:40)
[2019-12-15] MEDS: levETIRAcetam 500 MG TABLET 1500 MG PO ×2 (07:41→21:30)
[2019-12-15] MEDS: DIVALPROEX SODIUM 250 MG TABEC PO ×2 (07:41→17:16)
[2019-12-15] MEDS: FAMOTIDINE 20 MG TABLET PO (07:41)
[2019-12-15] MEDS: ATORVASTATIN 40 MG TABLET PO (07:41)
[2019-12-15] MEDS: ASPIRIN 325 MG TABLET PO (07:41)
[2019-12-15 07:42] VITALS: PULSE 81
[2019-12-15] MEDS: levETIRAcetam 250 MG TABLET PO ×2 (07:42→21:30)
[2019-12-15] MEDS: LORATADINE 10 MG TABLET PO (07:42)
[2019-12-15] MEDS: METOPROLOL TARTRATE 25 MG TABLET PO (07:42)
[2019-12-15] MEDS: POTASSIUM CHLORIDE 20 MEQ PACKET (FOR LIQUID) PO (07:43)
[2019-12-15] MEDS: PANTOPRAZOLE 40 MG TABLET PO (07:43)
--- NOTE | 2019-12-15 11:26 | PCDIET ---
Nutrition Follow-Up Complete: Nutrition Diagnosis: Decreased sodium/fat needs related to cardiovascular disease as evidenced by hx CVA. Nutrition Goal: Patient to consume 75% of meals or greater. Goal met. Intakes 100% of most meals on heart healthy diet which is appropriate. Last recorded weight is 73.5 kg which is stable. Bowel Motility: +BM on 12/14/19. Labs Reviewed: 12/13/19 BMP WNL. Meds Noted: Colace, Pepcid, Protonix, KCl Additional Notes: No documented skin breakdown. Will continue to monitor with same goal. Nutrition Monitoring and Evaluation: Follow up in 7 days.
--- NOTE | 2019-12-15 13:40 | WPDNEURORHBP ---
Subjective Date/time seen: 12/15/19 13:40 Interval history: this 79-year-old is here with right hemispheric stroke and the left-sided hemiparesis he has not had any seizures in the past couple of days he is improving overall denies any headache nausea vomiting chest pain shortness of breath fever chills sore throat Review of Systems Review of Systems: All systems reviewed & are unremarkable except as noted in HPI and below Functional Status Ambulation Ability Ability to Ambulate 10 Feet: Contact Guard Ability to Ambulate 50 Feet With 2 Turns: Contact Guard Ability to Ambulate 150 Feet: Minimum Assistance X 1 Ambulation Assistive Devices: Hand Hold Transfers Ability Ability to Transfer In/Out of Chair: Contact Guard Exam Const: General: comfortable and no acute distress HENMT: General nose exam: Normal nares present Mouth: Yes moist mucous membranes Eyes: General: appearance normal, both eyes and all related structures Neck: Neck: supple and no JVD Resp: Effort & Inspection: normal respiratory effort Auscultation: clear to auscultation bilaterally Cardio: Rate: regular rate Rhythm: regular rhythm GI: GI Palp: Yes Soft to palpation Auscultation: normal bowel sounds Skin: General skin exam: normal color and no rashes or lesions noted Neuro: Other: the patient is awake alert well oriented not in discomfort and improving neurological deficit primarily in the left side Extrem: General: normal to inspection Psych: Mental Status: mental status grossly normal Objective Data Vital Signs Vital Signs: Vital Signs - 24 hr 12/14/19 14:00 12/14/19 21:43 12/15/19 06:00 Temperature 36.6 C 36.6 C 37.4 C Pulse Rate 70 88 81 Respiratory Rate 20 18 18 Blood Pressure 120/78 141/78 H 131/74 Pulse Oximetry 100 100 96 12/15/19 07:42 Temperature Pulse Rate 81 Respiratory Rate Blood Pressure Pulse Oximetry Intake/Output Intake/Output: Intake & Output 12/12/19 12/13/19 12/14/19 12/15/19 23:59 23:59 23:59 23:59 Intake Total 4049 816 3404 360 Balance 1929 214 8042 360 Meds/Results Medications: Active Medications Generic Name Dose Route Start Last Admin Trade Name Freq PRN Reason Stop Dose Admin Amlodipine Besylate 10 mg 11/22/19 09:00 12/15/19 07:40 Norvasc PO 10 mg DAILY ILSA Administration Aspirin 325 mg 11/22/19 09:00 12/15/19 07:41 Aspirin PO 325 mg DAILY ILSA Administration Atorvastatin Calcium 40 mg 11/22/19 09:00 12/15/19 07:41 Lipitor PO 40 mg DAILY ILSA Administration Clotrimazole 1 applic 11/23/19 12:03 Lotrisone Cream TOPICAL Q12HR PRN Rash Divalproex Sodium 250 mg 12/12/19 12:00 12/15/19 07:41 Depakote Ec Tab PO 250 mg BID ILSA Administration Docusate Sodium 100 mg 12/02/19 09:43 Colace Capsule PO Q12H PRN Constipation Famotidine 20 mg 11/22/19 09:00 12/15/19 07:41 Pepcid PO 20 mg DAILY ILSA Administration Levetiracetam 1,500 mg 12/10/19 21:00 12/15/19 07:41 Keppra Tablet PO 1,500 mg Q12HR ILSA Administration Levetiracetam 250 mg 12/10/19 21:00 12/15/19 07:42 Keppra Tablet PO 250 mg Q12HR ILSA Administration Loratadine 10 mg 11/22/19 09:00 12/15/19 07:42 Claritin PO 10 mg DAILY ILSA Administration Metoprolol Tartrate 25 mg 11/22/19 09:00 12/15/19 07:42 Lopressor PO 25 mg DAILY ILSA Administration Pantoprazole Sodium 40 mg 11/22/19 09:00 12/15/19 07:43 Protonix PO 40 mg QAM ILSA Administration Potassium Chloride 20 meq 11/23/19 09:00 12/15/19 07:43 Kcl Powder (For Liquid) PO 20 meq DAILY ILSA Administration Radiology Results: ITS Impressions Head CT 12/11/19 06:45 IMPRESSION: 1. Areas of low attenuation involving the white matter of the right temporal parietal occipital lobe and left occipital lobe. The differential diagnosis includes posterior reversible encephalopathy syndrome (PRES), vasogenic edema from metastatic
[2019-12-15 14:00] VITALS: BP 112/68; PULSE 70; RESP 16; TEMP 36.8; O2SAT 100
[2019-12-15 22:00] VITALS: BP 130/78; PULSE 75; RESP 18; TEMP 37; O2SAT 100
[2019-12-16 06:00] VITALS: BP 148/79; PULSE 78; RESP 17; TEMP 36.8; O2SAT 97
[2019-12-16] MEDS: AMLODIPINE BESYLATE 5 MG TABLET 10 MG PO (09:14)
[2019-12-16] MEDS: ATORVASTATIN 40 MG TABLET PO (09:14)
[2019-12-16] MEDS: ASPIRIN 325 MG TABLET PO (09:14)
[2019-12-16] MEDS: DIVALPROEX SODIUM 250 MG TABEC PO ×2 (09:14→18:16)
[2019-12-16 09:15] VITALS: PULSE 78
[2019-12-16] MEDS: LORATADINE 10 MG TABLET PO (09:15)
[2019-12-16] MEDS: METOPROLOL TARTRATE 25 MG TABLET PO (09:15)
[2019-12-16] MEDS: FAMOTIDINE 20 MG TABLET PO (09:15)
[2019-12-16] MEDS: levETIRAcetam 250 MG TABLET PO ×2 (09:15→19:59)
[2019-12-16] MEDS: PANTOPRAZOLE 40 MG TABLET PO (09:15)
[2019-12-16] MEDS: levETIRAcetam 500 MG TABLET 1500 MG PO ×2 (09:15→19:59)
[2019-12-16] MEDS: POTASSIUM CHLORIDE 20 MEQ PACKET (FOR LIQUID) PO (09:16)
[2019-12-16 14:00] VITALS: BP 118/67; PULSE 82; RESP 20; TEMP 36.8; O2SAT 100
[2019-12-16 22:00] VITALS: BP 171/97; PULSE 77; RESP 18; TEMP 37.2; O2SAT 99
[2019-12-17 06:00] VITALS: BP 152/98; PULSE 107; RESP 18; TEMP 37.4; O2SAT 99
[2019-12-17] MEDS: levETIRAcetam 500 MG TABLET 1500 MG PO ×2 (10:16→21:00)
[2019-12-17] MEDS: POTASSIUM CHLORIDE 20 MEQ PACKET (FOR LIQUID) PO (10:16)
[2019-12-17 10:17] VITALS: PULSE 107
[2019-12-17] MEDS: AMLODIPINE BESYLATE 5 MG TABLET 10 MG PO (10:17)
[2019-12-17] MEDS: FAMOTIDINE 20 MG TABLET PO (10:17)
[2019-12-17] MEDS: LORATADINE 10 MG TABLET PO (10:17)
[2019-12-17] MEDS: METOPROLOL TARTRATE 25 MG TABLET PO (10:17)
[2019-12-17] MEDS: levETIRAcetam 250 MG TABLET PO ×2 (10:17→21:00)
[2019-12-17] MEDS: DIVALPROEX SODIUM 250 MG TABEC PO ×2 (10:17→17:43)
[2019-12-17] MEDS: ATORVASTATIN 40 MG TABLET PO (10:18)
[2019-12-17] MEDS: PANTOPRAZOLE 40 MG TABLET PO (10:18)
[2019-12-17] MEDS: ASPIRIN 325 MG TABLET PO (10:18)
[2019-12-17 14:00] VITALS: BP 104/64; PULSE 78; RESP 16; TEMP 36.5; O2SAT 100
--- NOTE | 2019-12-17 14:23 | WPDNEURORHBP ---
Subjective Date/time seen: S/Pright hemispheric stroke with seizure but recently under /21/20 14:23 Functional Status Ambulation Ability Ability to Ambulate 10 Feet: Contact Guard Ability to Ambulate 50 Feet With 2 Turns: Contact Guard Ability to Ambulate 150 Feet: Minimum Assistance X 1 Ambulation Assistive Devices: Hand Hold Transfers Ability Ability to Transfer In/Out of Chair: Contact Guard Exam Const: General: cooperative and no acute distress Nutritional Appearance: average body habitus Orientation/consciousness: patient oriented x3 Limitations: no limitations HENMT: Head: normal to inspection Eyes: General: appearance normal, both eyes and all related structures Neck: Neck: full ROM Resp: Effort & Inspection: normal respiratory effort Auscultation: clear to auscultation bilaterally Cardio: Rate: regular rate Rhythm: regular rhythm GI: Auscultation: normal bowel sounds Skin: General skin exam: no rashes or lesions noted Neuro: General: patient oriented x3 Speech: normal speech Motor exam (neuro): Abnormal motor strength present (improving deficit) Objective Data Vital Signs Vital Signs: Vital Signs - 24 hr 12/16/19 22:00 12/17/19 06:00 12/17/19 10:17 Temperature 37.2 C 37.4 C Pulse Rate 77 107 H 107 H Respiratory Rate 18 18 Blood Pressure 171/97 H 152/98 H Pulse Oximetry 99 99 Intake/Output Intake/Output: Intake & Output 12/14/19 12/15/19 12/16/19 12/17/19 23:59 23:59 23:59 23:59 Intake Total 1320 960 740 240 Balance 1320 960 740 240 Meds/Results Medications: Active Medications Generic Name Dose Route Start Last Admin Trade Name Freq PRN Reason Stop Dose Admin Amlodipine Besylate 10 mg 11/22/19 09:00 12/17/19 10:17 Norvasc PO 10 mg DAILY ILSA Administration Aspirin 325 mg 11/22/19 09:00 12/17/19 10:18 Aspirin PO 325 mg DAILY ILSA Administration Atorvastatin Calcium 40 mg 11/22/19 09:00 12/17/19 10:18 Lipitor PO 40 mg DAILY ILSA Administration Clotrimazole 1 applic 11/23/19 12:03 Lotrisone Cream TOPICAL Q12HR PRN Rash Divalproex Sodium 250 mg 12/12/19 12:00 12/17/19 10:17 Depakote Ec Tab PO 250 mg BID ILSA Administration Docusate Sodium 100 mg 12/02/19 09:43 Colace Capsule PO Q12H PRN Constipation Famotidine 20 mg 11/22/19 09:00 12/17/19 10:17 Pepcid PO 20 mg DAILY ILSA Administration Levetiracetam 1,500 mg 12/10/19 21:00 12/17/19 10:16 Keppra Tablet PO 1,500 mg Q12HR ILSA Administration Levetiracetam 250 mg 12/10/19 21:00 12/17/19 10:17 Keppra Tablet PO 250 mg Q12HR ILSA Administration Loratadine 10 mg 11/22/19 09:00 12/17/19 10:17 Claritin PO 10 mg DAILY ILSA Administration Metoprolol Tartrate 25 mg 11/22/19 09:00 12/17/19 10:17 Lopressor PO 25 mg DAILY ILSA Administration Pantoprazole Sodium 40 mg 11/22/19 09:00 12/17/19 10:18 Protonix PO 40 mg QAM ILSA Administration Potassium Chloride 20 meq 11/23/19 09:00 12/17/19 10:16 Kcl Powder (For Liquid) PO 20 meq DAILY ILSA Administration Radiology Results: ITS Impressions Head CT 12/11/19 06:45 IMPRESSION: 1. Areas of low attenuation involving the white matter of the right temporal parietal occipital lobe and left occipital lobe. The differential diagnosis includes posterior reversible encephalopathy syndrome (PRES), vasogenic edema from metastatic disease, and cytotoxic edema from infarcts. Brain MRI without and with contrast is recommended. Brain MRI 12/11/19 13:04 IMPRESSION: 1. Chronic infarct involving the right parietal, temporal, and occipital lobes. Chronic infarct in the left occipital lobe. 2. Mild nonspecific cerebral white matter disease, which likely represents chronic small vessel ischemic disease. 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
[2019-12-17 22:00] VITALS: BP 121/73; PULSE 79; RESP 16; TEMP 37.2; O2SAT 99
[2019-12-18 06:00] VITALS: BP 145/67; PULSE 99; RESP 16; TEMP 37.2; O2SAT 94
[2019-12-18 08:35] VITALS: PULSE 70; RESP 20; O2SAT 100
[2019-12-18 09:56] VITALS: O2SAT 97
[2019-12-18 10:10] VITALS: PULSE 97
[2019-12-18] MEDS: METOPROLOL TARTRATE 25 MG TABLET PO (10:10)
[2019-12-18] MEDS: LORATADINE 10 MG TABLET PO (10:10)
[2019-12-18] MEDS: PANTOPRAZOLE 40 MG TABLET PO (10:10)
[2019-12-18] MEDS: AMLODIPINE BESYLATE 5 MG TABLET 10 MG PO (10:11)
[2019-12-18] MEDS: FAMOTIDINE 20 MG TABLET PO (10:11)
[2019-12-18] MEDS: ASPIRIN 325 MG TABLET PO (10:11)
[2019-12-18] MEDS: DIVALPROEX SODIUM 250 MG TABEC PO ×2 (10:11→17:23)
[2019-12-18] MEDS: ATORVASTATIN 40 MG TABLET PO (10:11)
[2019-12-18] MEDS: levETIRAcetam 250 MG TABLET PO ×2 (10:12→21:54)
[2019-12-18] MEDS: levETIRAcetam 500 MG TABLET 1500 MG PO ×2 (10:12→21:54)
[2019-12-18] MEDS: POTASSIUM CHLORIDE 20 MEQ PACKET (FOR LIQUID) PO (10:12)
[2019-12-18 14:00] VITALS: BP 109/73; PULSE 72; RESP 20; TEMP 37.1; O2SAT 100
[2019-12-18 22:00] VITALS: BP 133/86; PULSE 81; RESP 16; TEMP 37; O2SAT 100
[2019-12-19 06:00] VITALS: BP 146/79; PULSE 71; RESP 18; TEMP 37.1; O2SAT 98
[2019-12-19 08:00] VITALS: PULSE 79; RESP 20; O2SAT 97
[2019-12-19] MEDS: FAMOTIDINE 20 MG TABLET PO (09:27)
[2019-12-19] MEDS: ASPIRIN 325 MG TABLET PO (09:27)
[2019-12-19] MEDS: DIVALPROEX SODIUM 250 MG TABEC PO ×2 (09:28→17:12)
[2019-12-19] MEDS: levETIRAcetam 250 MG TABLET PO ×2 (09:28→20:00)
[2019-12-19] MEDS: AMLODIPINE BESYLATE 5 MG TABLET 10 MG PO (09:28)
[2019-12-19] MEDS: ATORVASTATIN 40 MG TABLET PO (09:29)
[2019-12-19] MEDS: levETIRAcetam 500 MG TABLET 1500 MG PO ×2 (09:30→20:01)
[2019-12-19] MEDS: LORATADINE 10 MG TABLET PO (09:31)
[2019-12-19 09:32] VITALS: PULSE 71
[2019-12-19] MEDS: POTASSIUM CHLORIDE 20 MEQ PACKET (FOR LIQUID) PO (09:32)
[2019-12-19] MEDS: PANTOPRAZOLE 40 MG TABLET PO (09:32)
[2019-12-19] MEDS: METOPROLOL TARTRATE 25 MG TABLET PO (09:32)
[2019-12-19 14:00] VITALS: BP 117/50; PULSE 79; RESP 20; TEMP 37.1; O2SAT 97
--- NOTE | 2019-12-19 14:44 | WPDNEURORHBP ---
Subjective Date/time seen: 12/19/19 14:44 Interval history: this 79-year-old is here after having had a stroke which also caused him to have seizures he is slowly improving overall he denies any headache nausea vomiting chest pain shortness of breath fever chills sore throat he got a good report card from the OT PT and speech discharge planning to home on December 20 the case was discussed in the team conference with the daughter on line Review of Systems Review of Systems: All systems reviewed & are unremarkable except as noted in HPI and below Functional Status Ambulation Ability Ability to Ambulate 10 Feet: Contact Guard Ability to Ambulate 50 Feet With 2 Turns: Contact Guard Ability to Ambulate 150 Feet: Contact Guard Ambulation Assistive Devices: Hand Hold Transfers Ability Ability to Transfer In/Out of Chair: Standby Assistance Exam Const: General: comfortable and no acute distress HENMT: General nose exam: Normal nares present Mouth: Yes moist mucous membranes Eyes: General: appearance normal, both eyes and all related structures Neck: Neck: supple and no JVD Resp: Effort & Inspection: normal respiratory effort Auscultation: clear to auscultation bilaterally Cardio: Rate: regular rate Rhythm: regular rhythm GI: GI Palp: Yes Soft to palpation Auscultation: normal bowel sounds Skin: General skin exam: normal color and no rashes or lesions noted Neuro: Other: able to compensate for the left visual field defect left-sided hemiparesis improving remains alert oriented and follows all commands Extrem: General: normal to inspection Psych: Mental Status: mental status grossly normal Objective Data Vital Signs Vital Signs: Vital Signs - 24 hr 12/18/19 22:00 12/19/19 06:00 12/19/19 09:32 Temperature 37.0 C 37.1 C Pulse Rate 81 71 71 Respiratory Rate 16 18 Blood Pressure 133/86 146/79 H Pulse Oximetry 100 98 Intake/Output Intake/Output: Intake & Output 12/16/19 12/17/19 12/18/19 12/19/19 23:59 23:59 23:59 23:59 Intake Total 740 560 720 240 Balance 740 560 720 240 Meds/Results Medications: Active Medications Generic Name Dose Route Start Last Admin Trade Name Freq PRN Reason Stop Dose Admin Amlodipine Besylate 10 mg 11/22/19 09:00 12/19/19 09:28 Norvasc PO 10 mg DAILY ILSA Administration Aspirin 325 mg 11/22/19 09:00 12/19/19 09:27 Aspirin PO 325 mg DAILY ILSA Administration Atorvastatin Calcium 40 mg 11/22/19 09:00 12/19/19 09:29 Lipitor PO 40 mg DAILY ILSA Administration Clotrimazole 1 applic 11/23/19 12:03 Lotrisone Cream TOPICAL Q12HR PRN Rash Divalproex Sodium 250 mg 12/12/19 12:00 12/19/19 09:28 Depakote Ec Tab PO 250 mg BID ILSA Administration Docusate Sodium 100 mg 12/02/19 09:43 Colace Capsule PO Q12H PRN Constipation Famotidine 20 mg 11/22/19 09:00 12/19/19 09:27 Pepcid PO 20 mg DAILY ILSA Administration Levetiracetam 1,500 mg 12/10/19 21:00 12/19/19 09:30 Keppra Tablet PO 1,500 mg Q12HR ILSA Administration Levetiracetam 250 mg 12/10/19 21:00 12/19/19 09:28 Keppra Tablet PO 250 mg Q12HR ILSA Administration Loratadine 10 mg 11/22/19 09:00 12/19/19 09:31 Claritin PO 10 mg DAILY ILSA Administration Metoprolol Tartrate 25 mg 11/22/19 09:00 12/19/19 09:32 Lopressor PO 25 mg DAILY ILSA Administration Pantoprazole Sodium 40 mg 11/22/19 09:00 12/19/19 09:32 Protonix PO 40 mg QAM ILSA Administration Potassium Chloride 20 meq 11/23/19 09:00 12/19/19 09:32 Kcl Powder (For Liquid) PO 20 meq DAILY ILSA Administration Radiology Results: ITS Impressions Head CT 12/11/19 06:45 IMPRESSION: 1. Areas of low attenuation involving the white matter of the right temporal parietal occipital lobe and left occipital lobe. The differential diagnosis includes posterior reversible encephalopathy syndrome (PRES), vasogenic edema from met
[2019-12-19 21:55] VITALS: BP 151/68; PULSE 76; RESP 18; TEMP 37.2; O2SAT 97
[2019-12-20 05:23] LABS: Basophils Percent Auto 0.1 % (0.2-1.2); Eosinophils Absolute Auto 0.1 K/mm3 (0-0.3); Eosinophils Percent Auto 1.5 % (0-4.4); Hematocrit 35.5 % (42.0-52.0); Hemoglobin 11.9 g/dL (14.0-18.0); Immature Granulocyte Absolute 0.03 K/mm3 (0.00-0.031); Immature Granulocyte Percent A 0.4 % (0-0.5); Lymphocytes Absolute Auto 1.14 K/mm3 (0.9-3.2); Lymphocytes Percent Auto 16.9 % (18.3-44.2); Mean Corpuscular HGB Conc 33.5 g/dl (32-36); Mean Corpuscular Hemoglobin 29.5 pg (26-34); Mean Corpuscular Volume 87.9 fl (80-100); Mean Platelet Volume 10.9 fl (7.4-10.4); Monocytes Absolute Auto 1.2 K/mm3 (0.1-0.6); Monocytes Percent Auto 17.5 % (2.6-8.5); Neutrophils Absolute Auto 4.3 K/mm3 (1.3-6.7); Neutrophils Percent Auto 63.6 % (45.5-73.1); Platelet Count Result 152 k/mm3 (150-375); Red Blood Count 4.04 M/mm3 (4.6-6.20); Red Cell Distribution Width 14.2 % (11.5-14.5); White Blood Count 6.7 K/mm3 (4.5-10.0)
[2019-12-20 05:34] LABS: Blood Urea Nitrogen 19 mg/dL (9-20); Calcium 8.6 mg/dL (8.4-10.2); Carbon Dioxide 29 mmol/L (22-30); Chloride 105 mmol/L (98-107); Estimated CRCL calculation 54 ml/min; Estimated Glomerular Filt Rate > 60; Glucose 109 mg/dL (75-110); Sodium 138 mmol/L (137-145)
[2019-12-20 06:00] VITALS: BP 156/79; PULSE 88; RESP 18; TEMP 37.2; O2SAT 99
[2019-12-20 08:00] VITALS: PULSE 88; RESP 18; O2SAT 99
--- NOTE | 2019-12-20 08:15 | PCPTNOTE ---
Yuko Mcfadden PT completed an inpatient rehab wheelchair evaluation on Treva Solano on 12/20/2019. The patient is unable to safely and independently ambulate household distances due to their current impairments. Their diagnosis is CVA and their impairments include decreased strength, decreased endurance, decreased range of motion, decreased balance, lower extremity weakness, and ataxia. Treva's weight bearing status is weight-bearing as tolerated on the bilateral lower legs. The patient demonstrates significant functional mobility limitations that impair their ability to participate in mobility-related activities of daily living (MRADLs), including toileting, feeding, dressing, grooming, and bathing in the customary locations in the home. These limitations cannot be sufficiently resolved by the use of an appropriately fitted cane or walker. It is recommended that the patient utilize a wheelchair for functional mobility within the home in order to facilitate optimal safety, independence and participation in all MRADL's and adequately access their home environment on a regular basis. The patient's home provides adequate access between rooms, maneuvering space, and surfaces to accommodate the recommended wheelchair. The use of a wheelchair for functional mobility is strongly recommended and the patient is receptive to using the wheelchair. The use of this wheelchair will significantly improve the patient's ability to participate in MRADLS and the patient will use it on a regular basis in the home. This will facilitate optimal safety, independence, and participation. The patient has demonstrated sufficient physical and mental capabilities needed to safely propel a manual wheelchair that is provided in the home during a typical day. Recommended Wheelchair Frame: standard Recommended Wheelchair Size: 18 x 18 Recommended Wheelchair Cushion: standard Wheelchair Leg Recommendations: detachable - Anti-tippers are recommended due to patient demonstrating increased risk for falls. They would benefit from anti-tippers with added safety and stabilization. ___Yuko Mcfadden PT __12/20/19 Evaluating Therapist Date I agree with and certify that the above recommendation is medically necessary. Referring Physician Date I agree with and certify that the above recommendation is medically necessary. Referring Physician Date
[2019-12-20] MEDS: PANTOPRAZOLE 40 MG TABLET PO (08:38)
[2019-12-20] MEDS: levETIRAcetam 500 MG TABLET 1500 MG PO ×2 (08:38→20:09)
[2019-12-20] MEDS: FAMOTIDINE 20 MG TABLET PO (08:38)
[2019-12-20] MEDS: ASPIRIN 325 MG TABLET PO (08:38)
[2019-12-20] MEDS: LORATADINE 10 MG TABLET PO (08:38)
[2019-12-20 08:39] VITALS: PULSE 88
[2019-12-20] MEDS: ATORVASTATIN 40 MG TABLET PO (08:39)
[2019-12-20] MEDS: levETIRAcetam 250 MG TABLET PO ×2 (08:39→20:10)
[2019-12-20] MEDS: AMLODIPINE BESYLATE 5 MG TABLET 10 MG PO (08:39)
[2019-12-20] MEDS: METOPROLOL TARTRATE 25 MG TABLET PO (08:39)
[2019-12-20] MEDS: DIVALPROEX SODIUM 250 MG TABEC PO ×2 (08:39→18:54)
[2019-12-20] MEDS: POTASSIUM CHLORIDE 20 MEQ PACKET (FOR LIQUID) PO (08:40)
--- NOTE | 2019-12-20 12:43 | WPDNEURORHBP ---
Subjective Date/time seen: 12/20/19 12:43 Interval history: this 79-year-old pleasant gentleman is here after has suffering from stroke which has left him with the left-sided visual field defect left-sided neglect and left-sided hemiparesis all of which are improving however he is left with rather dense left-sided visual field defect and lead plenty of assistance to work his way. Patient denies any headache nausea vomiting chest pain shortness of breath fever chills sore throat Review of Systems Review of Systems: All systems reviewed & are unremarkable except as noted in HPI and below Functional Status Ambulation Ability Ability to Ambulate 10 Feet: Contact Guard Ability to Ambulate 50 Feet With 2 Turns: Contact Guard Ability to Ambulate 150 Feet: Contact Guard Ambulation Assistive Devices: Hand Hold Transfers Ability Ability to Transfer In/Out of Chair: Standby Assistance Exam Const: General: comfortable and no acute distress HENMT: General nose exam: Normal nares present Mouth: Yes moist mucous membranes Eyes: General: appearance normal, both eyes and all related structures Neck: Neck: supple and no JVD Resp: Effort & Inspection: normal respiratory effort Auscultation: clear to auscultation bilaterally Cardio: Rate: regular rate Rhythm: regular rhythm GI: GI Palp: Yes Soft to palpation Auscultation: normal bowel sounds Skin: General skin exam: normal color and no rashes or lesions noted Neuro: Other: patient is awake alert well oriented has improving left-sided hemiparesis and also improving left-sided neglect what left is which is rather dense is the left-sided visual field defect and is working with the speech to overcome that Extrem: General: normal to inspection Psych: Mental Status: mental status grossly normal Objective Data Vital Signs Vital Signs: Vital Signs - 24 hr 12/19/19 14:00 12/19/19 21:55 12/20/19 06:00 Temperature 37.1 C 37.2 C 37.2 C Pulse Rate 79 76 88 Respiratory Rate 20 18 18 Blood Pressure 117/50 L 151/68 H 156/79 H Pulse Oximetry 97 97 99 12/20/19 08:00 12/20/19 08:39 Temperature Pulse Rate 88 88 Respiratory Rate 18 Blood Pressure Pulse Oximetry 99 Intake/Output Intake/Output: Intake & Output 12/17/19 12/18/19 12/19/19 12/20/19 23:59 23:59 23:59 23:59 Intake Total 560 720 840 Balance 560 720 840 Meds/Results Medications: Active Medications Generic Name Dose Route Start Last Admin Trade Name Freq PRN Reason Stop Dose Admin Amlodipine Besylate 10 mg 11/22/19 09:00 12/20/19 08:39 Norvasc PO 10 mg DAILY ILSA Administration Aspirin 325 mg 11/22/19 09:00 12/20/19 08:38 Aspirin PO 325 mg DAILY ILSA Administration Atorvastatin Calcium 40 mg 11/22/19 09:00 12/20/19 08:39 Lipitor PO 40 mg DAILY ILSA Administration Clotrimazole 1 applic 11/23/19 12:03 Lotrisone Cream TOPICAL Q12HR PRN Rash Divalproex Sodium 250 mg 12/12/19 12:00 12/20/19 08:39 Depakote Ec Tab PO 250 mg BID ILSA Administration Docusate Sodium 100 mg 12/02/19 09:43 Colace Capsule PO Q12H PRN Constipation Famotidine 20 mg 11/22/19 09:00 12/20/19 08:38 Pepcid PO 20 mg DAILY ILSA Administration Levetiracetam 1,500 mg 12/10/19 21:00 12/20/19 08:38 Keppra Tablet PO 1,500 mg Q12HR ILSA Administration Levetiracetam 250 mg 12/10/19 21:00 12/20/19 08:39 Keppra Tablet PO 250 mg Q12HR ILSA Administration Loratadine 10 mg 11/22/19 09:00 12/20/19 08:38 Claritin PO 10 mg DAILY ILSA Administration Metoprolol Tartrate 25 mg 11/22/19 09:00 12/20/19 08:39 Lopressor PO 25 mg DAILY ILSA Administration Pantoprazole Sodium 40 mg 11/22/19 09:00 12/20/19 08:38 Protonix PO 40 mg QAM ILSA Administration Potassium Chloride 20 meq 11/23/19 09:00 12/20/19 08:40 Kcl Powder (For Liquid) PO 20 meq DAILY ILSA Administration Radiology Results: ITS Impre
[2019-12-20 14:00] VITALS: BP 115/65; PULSE 77; RESP 18; TEMP 37.2; O2SAT 99
[2019-12-20 22:00] VITALS: BP 138/88; PULSE 87; RESP 18; TEMP 37.1; O2SAT 100
[2019-12-21 06:00] VITALS: BP 115/61; PULSE 89; RESP 16; TEMP 37; O2SAT 92
[2019-12-21] MEDS: ASPIRIN 325 MG TABLET PO (08:57)
[2019-12-21] MEDS: FAMOTIDINE 20 MG TABLET PO (08:57)
[2019-12-21] MEDS: ATORVASTATIN 40 MG TABLET PO (08:57)
[2019-12-21] MEDS: AMLODIPINE BESYLATE 5 MG TABLET 10 MG PO (08:57)
[2019-12-21] MEDS: DIVALPROEX SODIUM 250 MG TABEC PO (08:57)
[2019-12-21 08:58] VITALS: PULSE 89
[2019-12-21] MEDS: levETIRAcetam 250 MG TABLET PO (08:58)
[2019-12-21] MEDS: METOPROLOL TARTRATE 25 MG TABLET PO (08:58)
[2019-12-21] MEDS: LORATADINE 10 MG TABLET PO (08:58)
[2019-12-21] MEDS: POTASSIUM CHLORIDE 20 MEQ PACKET (FOR LIQUID) PO (08:58)
[2019-12-21] MEDS: PANTOPRAZOLE 40 MG TABLET PO (08:58)
[2019-12-21] MEDS: levETIRAcetam 500 MG TABLET 1500 MG PO (08:58)
[2019-12-21 14:00] VITALS: BP 120/64; PULSE 79; RESP 16; TEMP 36.9; O2SAT 99
--- NOTE | 2019-12-21 18:35 | PC.NURSE ---
PATIENT WAS SCHEDULED TO LEAVE BETWEEN 3 AND 4PM VIA PERSONAL VEHICLE WITH DAUGHTER TRACEE PICKING UP. DAUGHTER ARRIVED AROUND 4PM WITH HER BROTHER AND RIVAS REFUSED TO GO WITH THEM, BECAME COMBATIVE AND DID NOT WANT TO GO WITH THE SON. HE GOT OUT OF THE TRUCK INTO HIS WHEELCHAIR, BUT REFUSED TO GO INSIDE, STATING HE WAS GOING TO WAIT OUTSIDE UNTIL SOMEONE ELSE/ANOTHER FAMILY MEMBER CAME TO P/U. DIOR Heath AND OTHERS FROM THERAPY WHERE THERE TO ASSIST AND WELT RANDER FERNIE, MYSELF AND CAPACITY MANAGEMENT SPECIALIST'S. ANOTHER THERAPIST CAME TO ASSIST AND SOME OF US RETURNED TO FLOOR WHILE THEY STAYED WITH HIM TO WAIT FOR FAMILY WHO RETURNED AROUND 615PM. HE GOT INTO THE CAR WITHOUT INCIDENT.
--- NOTE | 2019-12-27 10:30 | PM.DS ---
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: Code(s): G40.209 - Localization-related (focal) (partial) symptomatic epilepsy and epileptic syndromes with complex partial seizures, not intractable, without status epilepticus Status: Acute (4) Hyperlipidemia: Code(s): E78.5 - Hyperlipidemia, unspecified Status: Acute (5) Focal seizure: Code(s): R56.9 - Unspecified convulsions Status: Acute (6) Hypertension: Code(s): I10 - Essential (primary) hypertension Status: Acute (7) Left hemiparesis: Code(s): G81.94 - Hemiplegia, unspecified affecting left nondominant side Status: Acute (8) Stroke: Code(s): I63.9 - Cerebral infarction, unspecified Status: Acute DS: Summary Hospital Course Reason for hospitalization: This 79-year-old very pleasant Afro Turkish gentleman was admitted with right hemispheric stroke which had left him with left-sided hemiparesis left-sided neglect and also left-sided visual field defect he improved significantly as for as the hemiparesis was concerned however his left-sided visual field defect remains roughly about the same he is compensating for that and left-sided neglect has improved During the course of hospitalization he suffered few partial complex seizure which were treated with Keppra and Depakote and he had an had any seizures in the prior several days of this acute hospitalization Hospital Course: during the course of hospitalization he received the physical therapy occupational therapy speech therapy and gait training and the final functional independent measures/ Que I a.m. measures were as follows Eating setup oral hygiene supervision toileting partial assistance bathing partial assistance upper body dressing partial assistance lower body dressing sparse shall assistance footwear supervision rolling in bed independent sitting to line independent lying to sitting independent [id number] supervision chair transfers supervision toilet transfers supervision car transfers partial assistance walking 10 feet supervision walking 50 feet with 2 turns supervision walking 150 feet supervision walking 10 feet uneven surfaces supervision [place] step supervision 4 step supervision 12 step supervision picking up objects supervision wheelchair 50 feet partial assistance wheelchair 150 feet partial assistance The patient was sent home with home health PT and OT and speech Time Spent with Patient Time attestation: Total time spent providing and/or coordinating discharge services: Exam Const: General: comfortable and no acute distress HENMT: General nose exam: Normal nares present Mouth: Yes dry mucous membranes Eyes: General: appearance normal, both eyes and all related structures Neck: Neck: supple and no JVD Resp: Effort & Inspection: normal respiratory effort Auscultation: clear to auscultation bilaterally Cardio: Rate: regular rate Rhythm: regular rhythm GI: GI Palp: Yes Soft to palpation Auscultation: normal bowel sounds Skin: General skin exam: normal color and no rashes or lesions noted Neuro: Other: patient was awake alert well oriented followed all commands with fluent speech significantly improved left-sided hemiparesis significantly improved left-sided neglect however visual field defect was rather dense but he is trying to compensate with the help of over speech pathologist Extrem: General: normal to inspection Psych: Mental Status: mental status grossly normal Discharge Plan Dis
== END 2019-12-21 18:15 | disposition home health service (06) | DRG 57 ==
PROVIDERS: Psychiatry & Neurology Neurology; Admitting Provider Psychiatry & Neurology Neurology; PCP Internal Medicine; Visit Provider Psychiatry & Neurology Neurology
DX: I69.354 Hemiplegia and hemiparesis following cerebral infarction affecting left non-dominant side (principal); G40.209 Localization-related (focal) (partial) symptomatic epilepsy and epileptic syndromes with complex partial seizures, not intractable, without status epilepticus; F23 Brief psychotic disorder; I69.322 Dysarthria following cerebral infarction; I69.398 Other sequelae of cerebral infarction; R41.0 Disorientation, unspecified; E78.5 Hyperlipidemia, unspecified; I10 Essential (primary) hypertension; H53.40 Unspecified visual field defects
CPT/HCPCS: 36415; 70450; 70553; 80048; 80053; 80061; 80177; 81003; 85025; 87635; 92507; 92526; 92610; 93005; 96125; 97110; 97116; 97129; 97130; 97162; 97165; 97530; 97535; 97542; A9270; A9577; C9803; J1100; J1650; J1953; U0003